=== PATIENT | male | born 1955 | race Caucasian/White ===

== ENCOUNTER → 2021-02-06 13:07 | Outpatient (BNVA) | payer MEDICARE, MEDICAID, SELFPAY | PROVIDERS: PCP Internal Medicine Geriatric Medicine; Visit Provider Nurse Practitioner Family | DX: Z13.89 Encounter for screening for other disorder (principal) | CPT/HCPCS: Q3014 ==

== ENCOUNTER 2021-04-20 06:56 | Day surgery (SDC) | payer MEDICARE, MEDICAID, SELFPAY ==
[2021-04-14 10:59] VITALS: BMI 29.0
--- NOTE | 2021-04-16 12:20 | P.CONAN_ITS ---
Documented by User: Edna Roca 04/16/21 12:21 HPI - Anesthesia Eval Consult details Narrative: 65yo M for Colonoscopy [facility] Past Medical History Medical History (Updated 04/16/21 @ 12:20 by Edna Roca) Diabetes HTN (hypertension) Family History Family History (Updated 02/06/21 @ 13:10 by SUKUMAR Slaughter) Brother Cancer Diabetes Sister Diabetes Surgical History Surgical History (Updated 02/06/21 @ 13:08 by SUKUMAR Slaughter) H/O eye surgery Social History Social History (Updated 02/06/21 @ 13:11 by SUKUMAR Slaughter) Household Members: Spouse Alcohol intake: current Alcohol intake frequency: a few times a month Smoking Status: Never smoker Are you DNR?: No Advance Directives: No Advance Directives Information Provided: No Advance Directives on File: No Meds Allergies Allergy/AdvReac Type Severity Reaction Status Date / Time No Known Allergies Allergy Verified 04/14/21 10:56 [No Known Allergies*] Home Medications Medication Instructions Recorded Confirmed Last Taken Type atorvastatin 40 mg tablet 40 mg PO BEDTIME 02/06/21 04/14/21 Unknown History insulin NPH-regular 70-30 U-100 35 unit SUBCUT DAILY 02/06/21 04/14/21 Unknown History insulin 100 unit/mL subcutaneous pen losartan 100 mg tablet 100 mg PO DAILY 02/06/21 04/14/21 Unknown History metformin 1,000 mg tablet 1,000 mg PO BID 02/06/21 04/14/21 Unknown History albuterol sulfate 2 puff PO Q4-6H PRN 04/14/21 04/14/21 Unknown History Exam Exam Date and Time: April 16, 2021 1220 Height,Weight and Vital Signs: Height 5 ft 7 in Weight 83.915 kg Assessment and Plan Assessment Anesthesia Assessment: Chart Reviewed Documented by User: Marni Henderson 04/20/21 08:38 [facility] Past Medical History Medical History (Updated 04/16/21 @ 12:20 by Edna Roca) Diabetes HTN (hypertension) Family History Family History (Updated 02/06/21 @ 13:10 by SUKUMAR Slaughter) Brother Cancer Diabetes Sister Diabetes Surgical History Surgical History (Updated 02/06/21 @ 13:08 by SUKUMAR Slaughter) H/O eye surgery Social History Social History (Updated 02/06/21 @ 13:11 by SUKUMAR Slaughter) Household Members: Spouse Alcohol intake: current Alcohol intake frequency: a few times a month Smoking Status: Never smoker Are you DNR?: No Advance Directives: No Advance Directives Information Provided: No Advance Directives on File: No Meds Allergies Allergy/AdvReac Type Severity Reaction Status Date / Time No Known Allergies Allergy Verified 04/14/21 10:56 [No Known Allergies*] Home Medications Medication Instructions Recorded Confirmed Last Taken Type atorvastatin 40 mg tablet 40 mg PO BEDTIME 02/06/21 04/14/21 Unknown History insulin NPH-regular 70-30 U-100 35 unit SUBCUT DAILY 02/06/21 04/14/21 Unknown History insulin 100 unit/mL subcutaneous pen losartan 100 mg tablet 100 mg PO DAILY 02/06/21 04/14/21 Unknown History metformin 1,000 mg tablet 1,000 mg PO BID 02/06/21 04/14/21 Unknown History albuterol sulfate 2 puff PO Q4-6H PRN 04/14/21 04/14/21 Unknown History Exam Airway Mallampati Class: III TM Dist: >3cm Neck ROM: Full Heart: RRR Lungs: CTA BL Assessment and Plan Assessment Anesthesia Assessment: Anesthesia Plan Discussed and Chart Reviewed Final Anesthetic Review NPO: Yes ASA Class: III Final Preanesthetic Review: No Changes in Pt Med Stat and Consent Obtained/Reviewed Patient Risk: Intermediate Procedure Risk: Intermediate Anesthetic Plan Anesthetic Plan: MAC: Disposition: Standard PACU
[2021-04-20 07:42] LABS: Glucose, Whole Blood 98 mg/dL (60-115)
[2021-04-20 07:43] VITALS: BP 143/69; PULSE 73; RESP 16; TEMP 35.8; O2SAT 99
[2021-04-20] MEDS: Lactated Ringers 1,000 ML 100 ML IVCONT (07:47)
--- NOTE | 2021-04-20 08:31 | MHC.SHP ---
Pre-Procedural Eval Section B Chief Complaint: Screening Relevant Family History (Specify if Yes): No Relevant Social History: None Present Medications: see Short Stay Collaborative assessment Medical History: Significant History (Diabetes HTN (hypertension)) History of Previous Operations: Relevant previous surgery/procedure and date(s) (eye surg) Allergies: Allergies Allergy/AdvReac Type Severity Reaction Status Date / Time No Known Allergies Allergy Verified 04/14/21 10:56 [No Known Allergies*] Review of Systems Sugical H&P ROS: Negative: Constitution, Cardiovascular, Respiratory, Neurological, Psychiatric, Hem-Onc, Allergic/Immunologic, Gastrointestinal, Genitourinary, Musculoskeletal, Integumentary, Endocrine and Eyes/Ears/Nose/Throat Exam Surgical H&P Exam: Normal: HEENT, Normal: Heart, Normal: Lungs, Normal: Extremities, Normal: Abdomen, Normal: Skin and Normal: Neurological Plan Diagnosis/Plan: Unchanged I have reviewed the history and physical and performed a pertinent physical examination on my patient. No changes have occurred unless specified.
--- NOTE | 2021-04-20 08:40 | P.OP_ITS ---
Operative Note Operative Note Date of Service: 04/20/21 Narrative: Operative Information Procedure Description: Colonoscopy COLONOSCOPY Instrument: Olympus variable stiffness pediatric scope 190L Colonoscopy Monitoring: Vital signs and clinical assessment, continuous EKG monitoring, Pulse oximetry, Carbon Dioxide monitoring and blood pressure monitoring were done throughout the procedure. Colon withdrawal time was 11 minutes. Procedure: The patient was placed in the left lateral decubitis position and pre-procedure medications were administered. After a digital rectal examination of the ano-rectum, the video colonoscope was inserted into the rectum and advanced through the colon to the cecum/TI. The colonoscope was slowly withdrawn in a retrograde panoramic fashion and the colon mucosa was carefully examined including a retroflexed view of the rectum. Findings and interventions are described below. Procedure Difficulty:easy Findings: Terminal Ileum-normal Cecum:normal Ascending Colon: normal Transverse Colon -normal Descending Colon:normal Sigmoid Colon: scattered small diverticulosis Rectum: Retroflexion with small internal hemorrhoids, grade I Anorectum - normal Colon preparation: [place] Bowel Preparation Scale Right colon; 2 Transverse colon: 2 Left colon; 1 (0 = Unprepared colon segment with mucosa not seen due to solid stool that cannot be cleared. 1 = Portion of mucosa of the colon segment seen, but other areas of the colon segment not well seen due to staining, residual stool and/or opaque liquid. 2 = Minor amount of residual staining, small fragments of stool and/or opaque liquid, but mucosa of colon segment seen well. 3 = Entire mucosa of colon segment seen well with no residual staining, small fragments of stool or opaque liquid) Impression and Post Procedure Diagnosis: internal hemorrhoids diverticular disease Plan: High fiber diet leaflet Avoid straining at stool, epsom salts and sitz bath, anusol supps or cream as needed Repeat Colonoscopy in 1 year or earlier if clinically indicated, next time adherence to prep instructions Above findings were reviewed with the patient and relevant handouts were provided if indicated.
--- NOTE | 2021-04-20 08:40 | PM.OP ---
Brief Operative Note Date of Service: 04/20/21 Pre-op diagnosis: colon screening Post-op diagnosis: same Procedure: see op note Surgeon: Kenroy Arnett MD Anesthesia: MAC Was an Log Skidder used for this Procedure?: No Estimated blood loss (mL): 0 Condition: stable Disposition: PACU
[2021-04-20 09:05] VITALS: BP 114/60; PULSE 64; RESP 16; TEMP 36.2; O2SAT 99
[2021-04-20 09:18] LABS: Glucose, Whole Blood 95 mg/dL (60-115)
[2021-04-20 09:20] VITALS: BP 104/83; PULSE 65; RESP 16; TEMP 36.2; O2SAT 99
== END 2021-04-20 10:05 | disposition home or self-care (01) ==
PROVIDERS: PCP Internal Medicine Geriatric Medicine; Visit Provider Internal Medicine Gastroenterology
PROC: 0DJD8ZZ Inspection of Lower Intestinal Tract, Via Natural or Artificial Opening Endoscopic (ICD-10-PCS; CPT 45378; principal; 2021-04-20 08:30)
DX: Z12.11 Encounter for screening for malignant neoplasm of colon (principal); K57.30 Diverticulosis of large intestine without perforation or abscess without bleeding; K64.0 First degree hemorrhoids; I10 Essential (primary) hypertension; E11.9 Type 2 diabetes mellitus without complications; Z79.4 Long term (current) use of insulin; Z79.899 Other long term (current) drug therapy
CPT/HCPCS: G0121; 82947

== ENCOUNTER 2021-06-26 10:43 | Emergency (ER) | payer MEDICARE, OTHER, SELFPAY ==
--- NOTE | 2021-06-26 | ECG_ITS ---
Test Reason : CHEST PAIN Blood Pressure : / mmHG Vent. Rate : 078 BPM Atrial Rate : 078 BPM P-R Int : 168 ms QRS Dur : 144 ms QT Int : 412 ms P-R-T Axes : 053 -65 103 degrees QTc Int : 469 ms Sinus rhythm with occasional Premature ventricular complexes Left axis deviation Left bundle branch block Premature ventricular complexes Abnormal ECG When compared with ECG of 23-JUN-2020 12:21, No significant change was found Referred By: Generic ED Physician Electronically Signed By:KARINE DHALIWAL
[2021-06-26 11:18] VITALS: BP 137/50; PULSE 66; RESP 20; TEMP 35.6; O2SAT 98; BMI 27.3
--- NOTE | 2021-06-26 12:51 | ED.CHESTPAIN ---
HPI - Chest Pain General Chief Complaint: Dyspnea Stated Complaint: chest pain Time Seen by Provider: 06/26/21 12:34 Source: patient Mode of arrival: ambulatory Limitations: no limitations History of Present Illness HPI narrative: Patient comes emergency room complaining of chest pain. Patient states for the last 2 days, he has been having intermittent chest pain, states they seems to be worse with exertion. Patient states whenever he rests the pain goes away. Last night he had chest pain/burning sensation was yesterday, lasting approximately 4 minutes while caring a heavy box of water. Resolve with rest. This morning, patient states that he had slight discomfort follow-up being, left the few seconds but it on the way. At this time, patient is asymptomatic. Patient reports that this morning he seems to be a bit short of breath. Related Data Home Medications Medication Instructions Recorded Confirmed atorvastatin 40 mg tablet 40 mg PO BEDTIME 02/06/21 04/14/21 insulin NPH-regular 70-30 U-100 35 unit SUBCUT DAILY 02/06/21 04/14/21 insulin 100 unit/mL subcutaneous pen (Novolin 70-30 FlexPen U-100 Insulin) losartan 100 mg tablet 100 mg PO DAILY 02/06/21 04/14/21 metformin 1,000 mg tablet 1,000 mg PO BID 02/06/21 04/14/21 albuterol sulfate 90 mcg/actuation 2 puff PO Q4-6H PRN 04/14/21 04/14/21 aerosol inhaler Previous Rx's Medication Instructions Recorded bisacodyl 5 mg tablet,delayed 10 mg PO ONCE 1 Days #2 tab 02/06/21 release (Dulcolax (bisacodyl)) polyethylene glycol 3350 17 238 g PO ONCE #238 g 02/06/21 gram/dose oral powder (Miralax) aspirin 81 mg tablet,delayed 81 mg PO DAILY #30 tab 06/26/21 release metoprolol succinate 25 mg 12.5 mg PO DAILY #30 tab 06/26/21 tablet,extended release 24 hr nitroglycerin 0.4 mg sublingual 0.4 mg SUBLINGUAL Q5M PRN #10 tab 06/26/21 tablet Allergies Allergy/AdvReac Type Severity Reaction Status Date / Time No Known Allergies Allergy Verified 04/14/21 10:56 [No Known Allergies*] Review of Systems Review of Systems: Constitutional : No Weight loss, No Fever, No Chills, No Night Sweats, No Fatigue, No Malaise ENT/Mouth : No Hearing loss, No Ear Pain, No Nasal Congestion, No Sinus Pain, No Hoarseness, No sore throat, No Rhinorrhea, No Swallowing Difficulty Eyes: No Eye Pain, No Swelling, No Redness, No Foreign Body, No Discharge, No Vision Changes Cardiovascular : Complaining of chest pain/chest burning with exertion, No SOB, mild Dyspnea on Exertion, No Orthopnea, No Edema, No Palpitations Respiratory : No Cough, No Sputum, No Wheezing, No Smoke Exposure Gastrointestinal : No Nausea, No Vomiting, No Diarrhea, No Constipation, No abdominal Pain, No Hematochezia, No Melena Genitourinary : no irregular bleeding, No Dysuria, No Urinary Frequency, No Hematuria, No Urinary Incontinence, No Urgency, No Flank Pain, No Urinary Flow Changes, No Hesitancy Musculoskeletal : No joint pain, No Myalgias, No Joint Swelling Skin : No Skin Lesions, No rash Neuro : No Weakness, No Numbness, No Paresthesias, No Loss of Consciousness, No Dizziness, No Headache Psych : No Anxiety/Panic, No Depression, No SI/HI/AH/VH, No Social Issues, Heme/Lymph: No Bruising, No Bleeding,No Lymphadenopathy Endocrine : No Polyuria, No Polydipsia, No Temperature Intolerance [facility] Past Medical History Medical History Diabetes HTN (hypertension) Surgical History H/O eye surgery Family History Family History (Updated 02/06/21 @ 13:10 by SUKUMAR Slaughter) Brother Cancer Diabetes Sister Diabetes Social History Social History (Updated 02/06/21 @ 13:11 by SUKUMAR Slaughter) Household Members: Spouse Alcohol intake: current Alcohol intake frequency: a few times a month Advance Directives: No Advance Directives Information Provided: No Physical Exam Vital Signs: Vital Signs: Last Vital Signs Temp 97.7 F 06/26/21 15:23 Pulse 70 06/26/21 15:41 Resp 18 06/26/21 15:41 BP 135/77 06/26/21 15:41 Pulse Ox 97 06/26/21 15:23 Body Mass Index 27.3 Const: Other: Appearance: Alert. Oriented X3. No acute distress. Eyes: Pupils equal, round and reactive to light. ENT: Pharynx normal. Neck: Normal inspection. Neck supple. No lymph nodes noted. No crepitus CVS: Normal heart rate and rhythm. Pulses normal. Normal S1 and S2 Respiratory: No respiratory distress. Breath sounds normal. No Wheezing. No rales Abdomen: Soft and nontender. No rigidity. No distention. good BS x4 Skin: Skin warm and dry. Normal skin color. Normal skin turgor. Extremities: No lower extremity edema. No Lacerations. No Rash Neuro: Oriented X 3. No motor deficit. No sensory deficit. Moving all extermities. No slurred speech. Course Course Course Narrative: Patient has been asymptomatic in the emergency room. Patient will be discharged with a prescription of nitroglycerin p.r.n., aspirin, patient is already on a statin, and a small dose of metoprolol. Patient will likely need a cardiac stress test as an outpatient. MDM - Chest Pain Lab Data Result diagrams: 06/26/21 13:32 06/26/21 14:21 Labs: Lab Results 06/26/21 06/26/21 06/26/21 Range/Units 13:32 13:32 14:21 WBC 8.3 (4.8-10.8) X10*3/uL RBC 4.75 (4.60-5.80) X10*6/uL Hgb 13.4 L (14.0-18.0) g/dl Hct 41.3 L (42-52) % MCV 86.9 (80-98) fL MCH 28.2 (27.0-33.0) pg MCHC 32.4 (31.0-36.0) g/dl RDW 13.0 (11.0-16.0) % Plt Count 188 (160-400) X10*3/uL MPV 10.9 (9.4-12.4) fL Immature Gran % (Auto) 0.4 (0.0-0.4) % Neut % (Auto) 58.7 (45-73) % Lymph % (Auto) 28.5 (20-40) % [place] % (Auto) 10.7 (2-11) % Eos % (Auto) 1.3 (0-4) % Baso % (Auto) 0.4 (0-2) % Lymph # (Auto) 2.4 (1.2-4.9) X10*3/uL [place] # (Auto) 0.9 (0.1-1.2) X10*3/uL Eos # (Auto) 0.1 (0.0-0.4) X10*3/uL Baso # (Auto) 0.0 (0.0-0.2) X10*3/uL Abs Immat Gran (auto) 0.03 (0.00-0.03) X10*3/uL Absolute Neuts (auto) 4.9 (2.0-8.3) X10*3/uL Absolute Nucleated RBC 0.000 (0.0-0.012) X10*3/uL Nucleated RBC % (auto) 0.0 (0.0-0.2) /100WBC D-Dimer NG/ML Sodium 139 (135-145) mmol/L Potassium 4.5 (3.3-5.1) mmol/L Chloride 105 (96-108) mmol/L Carbon Dioxide 24 (22-29) mmol/L Anion Gap 15 (12-20) BUN 13 (9-16) mg/dL Creatinine 0.96 (0.5-1.4) mg/dL Estim Creat Clear Calc 73.2 Estimated GFR > 60 Random Glucose 95 (60-115) mg/dL Calcium 9.8 (8.4-10.2) mg/dL Total Bilirubin 0.6 (0.0-1.0) mg/dL Direct Bilirubin 0.2 (0.0-0.5) mg/dL AST 17 (5-37) U/L ALT 20 (0-40) U/L Alkaline Phosphatase 70 (39-117) U/L Troponin I High Sens 8.7 (<3.5-35.0) ng/L Total Protein 7.1 (6.5-8.0) g/dL Albumin 4.1 (3.5-5.0) g/dL 06/26/21 Range/Units 14:21 WBC (4.8-10.8) X10*3/uL RBC (4.60-5.80) X10*6/uL Hgb (14.0-18.0) g/dl Hct (42-52) % MCV (80-98) fL MCH (27.0-33.0) pg MCHC (31.0-36.0) g/dl RDW (11.0-16.0) % Plt Count (160-400) X10*3/uL MPV (9.4-12.4) fL Immature Gran % (Auto) (0.0-0.4) % Neut % (Auto) (45-73) % Lymph % (Auto) (20-40) % [place] % (Auto) (2-11) % Eos % (Auto) (0-4) % Baso % (Auto) (0-2) % Lymph # (Auto) (1.2-4.9) X10*3/uL [place] # (Auto) (0.1-1.2) X10*3/uL Eos # (Auto) (0.0-0.4) X10*3/uL Baso # (Auto) (0.0-0.2) X10*3/uL Abs Immat Gran (auto) (0.00-0.03) X10*3/uL Absolute Neuts (auto) (2.0-8.3) X10*3/uL Absolute Nucleated RBC (0.0-0.012) X10*3/uL Nucleated RBC % (auto) (0.0-0.2) /100WBC D-Dimer 200 NG/ML Sodium (135-145) mmol/L Potassium (3.3-5.1) mmol/L Chloride (96-108) mmol/L Carbon Dioxide (22-29) mmol/L Anion Gap (12-20) BUN (9-16) mg/dL Creatinine (0.5-1.4) mg/dL Estim Creat Clear Calc Estimated GFR Random Glucose (60-115) mg/dL Calcium (8.4-10.2) mg/dL Total Bilirubin (0.0-1.0) mg/dL Direct Bilirubin (0.0-0.5) mg/dL AST (5-37) U/L ALT (0-40) U/L Alkaline Phosphatase (39-117) U/L Troponin I High Sens (<3.5-35.0) ng/L Total Protein (6.5-8.0) g/dL Albumin (3.5-5.0) g/dL ECG Data ECG #1: Attestation: I personally reviewed and interpreted this ECG as follows: (Sinus rhythm, heart rate 78, old left bundle branch block, occasional PVC, ST segment depressions V5 V6 which are old as well) Discharge Plan Discharge Clinical Impression: Chest pain Qualifiers: Chest pain type: unspecified Qualified Code(s): R07.9 - Chest pain, unspecified Patient Disposition: Home, Self-Care Instructions: Chest Pain (ED) Additional Instructions: Please follow-up with your primary care physician tomorrow. If you have any worsening or new symptoms, please return to the emergency room or call 911 Prescriptions: New nitroglycerin 0.4 mg tablet, sublingual 0.4 mg sublingual Q5M PRN (Reason: chest pain) Qty: 10 RF: 0 aspirin 81 mg tablet,delayed release (DR/EC) 81 mg PO DAILY Qty: 30 RF: 0 metoprolol succinate 25 mg tablet extended release 24 hr 12.5 mg PO DAILY Qty: 30 RF: 0 No Action albuterol sulfate 90 mcg/actuation HFA aerosol inhaler 2 puff PO Q4-6H PRN (Reason: Shortness Of Breath) RF: 0 metformin 1,000 mg tablet 1,000 mg PO BID RF: 0 Novolin 70-30 FlexPen U-100 100 unit/mL (70-30) insulin pen 35 unit subcut DAILY RF: 0 losartan 100 mg tablet 100 mg PO DAILY RF: 0 atorvastatin 40 mg tablet 40 mg PO BEDTIME RF: 0 bisacodyl [Dulcolax (bisacodyl)] 5 mg tablet,delayed release (DR/EC) 10 mg PO ONCE 1 Days Qty: 2 RF: 0 polyethylene glycol 3350 [Miralax] 17 gram/dose powder 238 g PO ONCE Qty: 238 RF: 0
[2021-06-26 13:37] LABS: MANUAL DIFF FLAG NO
[2021-06-26 13:40] LABS: Basophils Percent Auto 0.4 % (0-2); Eosinophils Absolute Auto 0.1 X10*3/uL (0.0-0.4); Eosinophils Percent Auto 1.3 % (0-4); Hematocrit 41.3 % (42-52); Hemoglobin 13.4 g/dl (14.0-18.0); Imm Gran Abs Auto 0.03 X10*3/uL (0.00-0.03); Imm Gran Pct Auto 0.4 % (0.0-0.4); Lymphocytes Absolute Auto 2.4 X10*3/uL (1.2-4.9); Lymphocytes Percent Auto 28.5 % (20-40); Mean Corpuscular HGB Conc 32.4 g/dl (31.0-36.0); Mean Corpuscular Hemoglobin 28.2 pg (27.0-33.0); Mean Corpuscular Volume 86.9 fL (80-98); Mean Platelet Volume 10.9 fL (9.4-12.4); Monocytes Absolute Auto 0.9 X10*3/uL (0.1-1.2); Monocytes Percent Auto 10.7 % (2-11); Neutrophils Absolute Auto 4.9 X10*3/uL (2.0-8.3); Neutrophils Percent Auto 58.7 % (45-73); Platelet Count 188 X10*3/uL (160-400); Red Blood Count 4.75 X10*6/uL (4.60-5.80); White Blood Count 8.3 X10*3/uL (4.8-10.8)
[2021-06-26 14:03] LABS: Troponin-I High Sensitivity 8.7 ng/L (<3.5-35.0)
[2021-06-26 14:40] LABS: D Dimer 200 NG/ML
[2021-06-26 14:50] LABS: Alanine Aminotransferase 20 U/L (0-40); Albumin Level 4.1 g/dL (3.5-5.0); Alkaline Phosphatase 70 U/L (39-117); Anion Gap 15 (12-20); Aspartate Amino Transferase 17 U/L (5-37); Bilirubin Direct 0.2 mg/dL (0.0-0.5); Bilirubin Total 0.6 mg/dL (0.0-1.0); Blood Urea Nitrogen 13 mg/dL (9-16); Calcium 9.8 mg/dL (8.4-10.2); Carbon Dioxide 24 mmol/L (22-29); Chloride 105 mmol/L (96-108); Creatinine Clr Calc Pharmacy 73.2; Estimated Glomerular Filt Rate > 60; Glucose Random 95 mg/dL (60-115); Potassium 4.5 mmol/L (3.3-5.1); Sodium 139 mmol/L (135-145); Total Protein 7.1 g/dL (6.5-8.0)
[2021-06-26 15:23] VITALS: BP 142/68; PULSE 70; RESP 20; TEMP 36.5; O2SAT 97
[2021-06-26 15:41] VITALS: BP 135/77; PULSE 70; RESP 18
== END 2021-06-26 16:17 | disposition home or self-care (01) ==
PROVIDERS: Emergency Provider Emergency Medicine; PCP Internal Medicine Geriatric Medicine
DX: R07.9 Chest pain, unspecified (principal); E11.9 Type 2 diabetes mellitus without complications; I10 Essential (primary) hypertension; Z79.899 Other long term (current) drug therapy
CPT/HCPCS: 36415; 80048; 80076; 84484; 85025; 85379; 93005; 99284

== ENCOUNTER 2022-05-27 12:09 | Outpatient (REF) | payer MEDICARE, OTHER, SELFPAY ==
[2022-05-27 13:53] LABS: Hematocrit 43.5 % (42.0-52.0); Hemoglobin 13.9 g/dl (14.0-18.0); Mean Corpuscular Hemoglobin 27.5 pg (27.0-33.0); Mean Corpuscular Volume 86.1 fL (80.0-98.0); Mean Platelet Volume 11.4 fL (9.4-12.4); Platelet Count 177 X10*3/uL (160-400); Red Blood Count 5.05 X10*6/uL (4.60-5.80); Red Cell Distribution Width 13.2 % (11.0-16.0); White Blood Count 7.4 X10*3/uL (4.8-10.8)
[2022-05-27 13:59] LABS: INTERNATIONAL NORM RATIO 1.2 (0.9-1.1); Prothrombin Time 13.3 SEC (10.0-13.1)
[2022-05-27 14:43] LABS: Anion Gap 14 (12-20); Blood Urea Nitrogen 14 mg/dL (9-16); Calcium 9.8 mg/dL (8.4-10.2); Carbon Dioxide 27 mmol/L (22-29); Chloride 100 mmol/L (96-108); Creatinine Clr Calc Pharmacy 71.7; Estimated Glomerular Filt Rate > 60; Glucose Random 216 mg/dL (60-115); Potassium 5.2 mmol/L (3.3-5.1); Sodium 136 mmol/L (135-145)
== END 2022-05-27 12:10 | disposition home or self-care (01) ==
LOC: HO.LAB 12:09
PROVIDERS: PCP Internal Medicine Geriatric Medicine; Referring Provider Internal Medicine Geriatric Medicine; Visit Provider Internal Medicine Cardiovascular Disease
DX: I20.8 Other forms of angina pectoris (principal); I25.5 Ischemic cardiomyopathy; I10 Essential (primary) hypertension; I44.7 Left bundle-branch block, unspecified; Z79.899 Other long term (current) drug therapy
CPT/HCPCS: 36415; 80048; 85027; 85610; 93005; 99202

== ENCOUNTER → 2022-09-30 08:22 | Outpatient (BNVA) | payer MEDICARE, SELFPAY | PROVIDERS: PCP Internal Medicine Geriatric Medicine; Visit Provider Internal Medicine Cardiovascular Disease | DX: I42.9 Cardiomyopathy, unspecified (principal); I25.5 Ischemic cardiomyopathy; I25.10 Atherosclerotic heart disease of native coronary artery without angina pectoris | CPT/HCPCS: 99212 ==

== ENCOUNTER → 2023-03-22 10:08 | Outpatient (BNVA) | payer MEDICARE, SELFPAY | PROVIDERS: PCP Internal Medicine Geriatric Medicine; Referring Provider Internal Medicine Geriatric Medicine; Visit Provider Internal Medicine Cardiovascular Disease | DX: I25.10 Atherosclerotic heart disease of native coronary artery without angina pectoris (principal); I44.7 Left bundle-branch block, unspecified; I25.5 Ischemic cardiomyopathy | CPT/HCPCS: 93005; 99212 ==

== ENCOUNTER 2023-04-08 06:05 | Outpatient (REF) | payer MEDICARE, SELFPAY ==
[2023-04-08 08:01] LABS: Cholesterol 91 mg/dL; HDL Cholesterol 29 mg/dL; LDL Cholesterol Calculated 27 mg/dl; Triglycerides 175 mg/dL
[2023-04-11 16:03] LABS: CRP High Sensitivity 2.2 mg/L
== END 2023-04-08 06:06 | disposition home or self-care (01) ==
LOC: HO.LAB 06:05
PROVIDERS: PCP Internal Medicine Geriatric Medicine; Visit Provider Internal Medicine Cardiovascular Disease
DX: E78.5 Hyperlipidemia, unspecified (principal); I25.10 Atherosclerotic heart disease of native coronary artery without angina pectoris
CPT/HCPCS: 36415; 80061; 86141

== ENCOUNTER → 2023-04-21 10:31 | Outpatient (REF) | payer MEDICARE, OTHER, SELFPAY ==
--- NOTE | 2023-04-21 10:49 | CA_ITS ---
Transthoracic Echocardiogram Patient (Last, First, Middle): Danny Martinez, Gender: Male Date of : 1955 Age: 67 Procedure Date: 04/21/2023 Procedure Type: Transthoracic Echocardiogram Location: OP Height: 172.72 cm Weight: 80.74 kg BSA: 1.95 m2 Heart Rate: 57 bpm BP: 130 / 64 mmHg Grain Unloader: TO Referring MD: Abhishek Kelley MD Symptoms: I25.5 - Ischemic cardiomyopathy Study Quality: Adequate ECG Rhythm: Bradycardia Conclusions: - The left ventricular systolic function is severely decreased. The visually estimated ejection fraction is between 25-30%. - The inferoseptal wall, the basal anteroseptal, and mid anteroseptal segments are akinetic. - No obvious valvular pathology seen on this study. Findings Procedure Information Contrast agent, definity, is being given per protocol without apparent complications. Left Ventricle Mildly increased left ventricular cavity size. There is normal left ventricular wall thickness. The left ventricular systolic function is severely decreased. The visually estimated ejection fraction is between 25 30%. There is evidence of regional wall motion abnormalities. E/E prime ratio is between 8 and 15 consistent with indeterminate filling pressures. Evidence suggests grade II (moderate) diastolic dysfunction. Wall Motion Rest Echo Findings The inferoseptal wall, the basal anteroseptal, and mid anteroseptal segments are akinetic. Right Ventricle Normal right ventricular cavity size and systolic function. Atria Both atria are normal in size. Aortic Valve There is a normal trileaflet aortic valve. There is mild calcification of the aortic valve. There is no aortic valve stenosis. There is no aortic valve regurgitation. Mitral Valve The mitral valve appears normal. There is trace mitral valve regurgitation. There is no mitral valve stenosis. Pulmonic Valve The pulmonic valve is likely normal. Tricuspid Valve There is trace tricuspid valve regurgitation. There is no evidence of pulmonary hypertension. Great Vessels The asc aorta is normal in size. Venous The inferior vena cava is normal in size and collapses greater than 50% with inspiration. Pericardium/Pleural There is no evidence of pericardial effusion. Prior Study Comparison No prior study available for comparison. Recommendations, Care & Conclusions No obvious valvular pathology seen on this study. Measurements 2D Linear Measurements IVSd: 0.82 0.6-0.9/0.6-1.0 cm LVIDd: 5.55 3.9-5.3/4.2-5.9 cm LVIDd Index: 2.85 2.4-3.2/2.2-3.1 cm/m2 LVIDs: 4.37 2.0-3.6 cm LVPWd: 0.90 0.7-1.1 cm LA Diam: 4.10 2.7-3.8/3.0-4.0 cm LAIDs Index: 2.10 1.5-2.3 cm/m2 LV Mass: 221.65 67-162/88-224 g LV Mass Index: 113.67 43-95/49-115 g/m2 LVOT Diam: 2.30 3.0+(-)1.3 cm 2D Systolic Function EF 4C: 31.50 >55% EF 2C: 39.40 >55% EF BiP: 35.70 >55% Mitral Valve MV Pk E: 0.80 MV PK A: 0.66 MV Decel Time: 211.00 E/A: 1.20 E'Lateral: 7.51 E'Medial: 3.48 E/E' Med: 22.90 E/E' Lat: 10.60 PHT: 62.00 MVA PHT: 3.55 Decel [place]: 3.77 Aortic Valve AoV Pk Jaime: 0.91 AoV Mn Jaime: 0.62 AoV VTI: 0.20 AoV Pk Grad: 3.00 Aov Mn Grad: 2.00 MEILSSA Cont.VTI: 2.99 LVOT LVOT Pk Jaime: 0.65 LVOT Mn Jaime: 0.43 LVOT VTI: 0.15 LVOT Pk Grad: 2.00 LVOT Mn Grad: 1.00 LVOT Diam: 2.30 LVOT Area: 4.15 Diastolic Function MV Pk E: 0.80 MV Pk A: 0.66 E/A: 1.20 E'Medial: 3.48 E/E' Med: 22.90 E' Laterial: 7.51 E/E' Lat: 10.60 Right Ventricle TAPSE (mm): 23.80 TVS' Jaime: 9.79 Tricuspid Valve TR Pk Jaime: 1.52 TR Pk Grad: 9.00 RA Press: 3.00 RVSP: 12.00 Great Vessels Aorta Sinus of Valsalva: 3.81 2.0-3.5 cm Ao Asc: 3.20 2.1-3.4 cm Updated in Other Vendor System with Status of Final Alex Ocampo MD electronically signed on 04/23/2023 12:38:56 PM with status of Final
== END ==
LOC: HO.CARD 10:31
PROVIDERS: PCP Internal Medicine Geriatric Medicine; Visit Provider Internal Medicine Cardiovascular Disease
DX: I25.5 Ischemic cardiomyopathy (principal)
CPT/HCPCS: 93306; Q9957

== ENCOUNTER 2023-10-04 15:13 | Outpatient (AMB) | payer MEDICARE, SELFPAY ==
--- NOTE | 2023-10-04 15:18 | A.OFFVIS_ITS ---
Intake Vital Signs 10/04/23 15:19 Height 5 ft 8 in Weight 172 lb 6.424 oz BMI 26.2 BP 110/54 L Blood Pressure Location Lt brachial Position Sitting Pulse 66 Intake Visit Reasons: 6 month follow-up Intake Note: 6 month follow up Coordinator Of Rehabilitation Services Required: Yes Coordinator Of Rehabilitation Services Language: Ware Cleaner Name: Fredi Lane Accompanied by: Self / Same As Patient Allergies No Known Allergies [No Known Allergies*] Allergy (Verified 10/04/23 15:21) Medication List - Last Reconciled 10/04/23 by Abhishek Kelley MD albuterol sulfate 90 mcg/actuation 2 puffs PO Q4-6H PRN aspirin 81 mg PO DAILY bisacodyl (Dulcolax (bisacodyl)) 10 mg (2 x 5 mg) PO ONCE 1 day insulin NPH and regular human 100 unit/mL (70-30) (Novolin 70-30 FlexPen U-100 Insulin) 35 units subcut DAILY insulin NPH and regular human 100 unit/mL (70-30) (Humulin 70/30 U-100 Insulin) mL subcut isosorbide mononitrate ER 60 mg PO DAILY metformin 1,000 mg PO BID metoprolol succinate ER 50 mg PO DAILY 90 days nitroglycerin 0.4 mg sublingual Q5M PRN polyethylene glycol 3350 (Miralax) 238 grams PO ONCE rosuvastatin 40 mg PO DAILY 90 days sacubitril-valsartan 24-26 mg (Entresto) 1 tab PO BID HPI HPI Comments History of Present Illness Details Danny comes for follow-up. History was obtained with help of full time staff interpreter. Patient says he has been doing well. Walks 30-45 minutes without break and has no symptoms of chest discomfort. No shortness of breath. Denies any heart failure symptoms. Takes all his medications. Most recent LDL was well optimized. Denies any palpitations, lightheadedness, syncope. [facility] Medical History CAD (coronary artery disease) Diabetes HTN (hypertension) Surgical History H/O eye surgery Family History Brother Cancer Diabetes Sister Diabetes Social History Household Members: Spouse Alcohol intake: current Alcohol intake frequency: a few times a month Review of Systems Const Denies weakness ENT Denies dizziness Card Denies chest pain, Denies chest pain with activity, Denies syncope, Denies rapid heart rate, Denies pedal edema, Denies edema, Denies leg edema, Denies lightheadedness, Denies palpitations, Denies dyspnea, Denies dyspnea on exertion and Denies orthopnea Resp Denies cough, Denies dyspnea and Denies dyspnea on exertion GI Denies hematochezia and Denies change in stool character Musc Denies abnormal gait, Denies muscle cramps, Denies muscle weakness, Denies numbness, Denies radiating pain into limb and Denies tingling Neuro Denies Abnormal speech present, Denies abnormal gait, Denies dizziness, Denies syncope, Denies numbness, Denies tingling and Denies weakness Endo Denies palpitations Physical Exam Vital Signs: Last Vital Signs Pulse 66 10/04/23 15:19 BP 110/54 L 10/04/23 15:19 BMI result Body Mass Index 26.2 Const General: cooperative, comfortable, no acute distress, alert, awake, Physically active and well groomed Nutritional Appearance: overweight Orientation/consciousness: patient oriented x3 Limitations: no limitations Neck Neck: Yes trachea midline, Yes supple and Yes no JVD Chest Chest palpation & inspection: normal inspection of the chest Resp Effort & Inspection: normal respiratory effort Auscultation: clear to auscultation bilaterally Cardio Jugular venous distension: no JVD Palpation: normal PMI Rate: regular rate Rhythm: regular rhythm Heart sounds: S1 normal heart sound present, S2 normal heart sound present, no click, no gallops, no murmurs and no rubs GI Inspection: Yes obesity Auscultation: normal bowel sounds Skin General skin exam: no rashes or lesions noted Neuro General: patient oriented x3 and no focal motor deficits Speech: No Abnormal speech present Extrem General: Yes no clubbing, cyanosis or edema Psych Appearance: grossly normal Assessment & Plan Assessment & Plan (1) Ischemic cardiomyopathy: Code(s): I25.5 - Ischemic cardiomyopathy Plan: Last echocardiogram showed persistent severe ischemic cardiomyopathy, but surprising clinically has no symptoms with good functional capacity. Clinically euvolemic and well compensated. NYHA class 1 symptoms. Currently on neurohormonal modulation with metoprolol and Entresto. Advised to follow-up echocardiogram near future. If he has persistent severe LV systolic dysfunction should further evaluate for myocardial viability and ischemia and consider surgical revascularization. This was discussed with him with help of full time staff interpreter. Signs and symptoms of heart failure were discussed. Continue anti ischemic therapy with metoprolol and isosorbide as well. Follow-up in 4 weeks time. If not a candidate for revascularization then will most likely need EPS consultation for Bi V ICD with resynchronization if he still has left bundle- branch block (2) CAD (coronary artery disease): Comment: Severe 2 vessel disease with 99% ostial circumflex as well as IFR positive LAD disease Code(s): I25.10 - Atherosclerotic heart disease of [place] coronary artery without angina pectoris Plan: Complex severe 2 vessel disease with no symptoms of angina on dual antianginal therapy. Currently doing well. Continue low-dose aspirin therapy for life. Currently on dual antianginal therapy with well optimized symptoms in good functional capacity. His LDL is extremely well optimized. Management of ischemia as above. Advised to call me with any anginal symptoms. Will follow up in the clinic in 4 weeks time, sooner p.r.n.. Thank you for allowing me to partake in his care Coding Level of Care Code Est Pt Level 4 (43484) Diagnoses Ischemic cardiomyopathy I25.5 CAD (coronary artery disease) I25.10
[2023-10-04 15:19] VITALS: BP 110/54; PULSE 66; BMI 26.2
== END 2023-10-04 15:34 | disposition home or self-care (01) ==
PROVIDERS: Visit Provider Internal Medicine Cardiovascular Disease
DX: I25.5 Ischemic cardiomyopathy (principal); I25.10 Atherosclerotic heart disease of native coronary artery without angina pectoris
CPT/HCPCS: 99214

== ENCOUNTER → 2023-10-04 15:13 | Outpatient (BNVA) | payer MEDICARE, SELFPAY | PROVIDERS: Visit Provider Internal Medicine Cardiovascular Disease | DX: I42.9 Cardiomyopathy, unspecified (principal); I25.5 Ischemic cardiomyopathy; I25.10 Atherosclerotic heart disease of native coronary artery without angina pectoris; I10 Essential (primary) hypertension; E11.9 Type 2 diabetes mellitus without complications | CPT/HCPCS: 99212 ==

== ENCOUNTER → 2023-11-08 14:40 | Outpatient (REF) | payer MEDICARE, OTHER, SELFPAY ==
--- NOTE | 2023-11-08 14:55 | CA_ITS ---
Transthoracic Echocardiogram Patient (Last, First, Middle): Danny Martinez, Gender: Male Date of : 1955 Age: 68 Procedure Date: 11/08/2023 Procedure Type: Transthoracic Echocardiogram Location: OP Height: 172.72 cm Weight: 77.57 kg BSA: 1.91 m2 Heart Rate: bpm BP: 120 / 70 mmHg Hip Hop Artist: MARK/DOMO Referring MD: Abhishek Kelley MD Symptoms: I42.9 - Cardiomyopathy, unspecified Study Quality: Adequate with contrast Conclusions: - The left ventricular systolic function is severely decreased. The visually estimated ejection fraction is between 25-30%. - The inferoseptal wall, the basal anteroseptal, and mid anteroseptal segments are akinetic. Findings Procedure Information Contrast agent, definity, is being given per protocol without apparent complications. Left Ventricle Mildly increased left ventricular cavity size. The left ventricular systolic function is severely decreased. The visually estimated ejection fraction is between 25-30%. There is evidence of regional wall motion abnormalities. Wall Motion Rest Echo Findings The inferoseptal wall, the basal anteroseptal, and mid anteroseptal segments are akinetic. Venous The inferior vena cava is normal in size and collapses greater than 50% with inspiration. Prior Study Comparison No significant change compared to prior study dated: 04/21/2023. Measurements 2D Linear Measurements IVSd: 0.79 0.6-0.9/0.6-1.0 cm LVIDd: 5.62 3.9-5.3/4.2-5.9 cm LVIDd Index: 2.94 2.4-3.2/2.2-3.1 cm/m2 LVIDs: 4.89 2.0-3.6 cm LVPWd: 0.71 0.7-1.1 cm LV Mass: 190.30 67-162/88-224 g LV Mass Index: 99.64 43-95/49-115 g/m2 LVOT Diam: 2.30 3.0+(-)1.3 cm 2D Systolic Function EF 4C: 33.20 >55% EF 2C: 41.60 >55% EF BiP: 37.70 >55% LVOT LVOT Pk Jaime: 0.67 LVOT Mn Jaime: 0.44 LVOT VTI: 0.13 LVOT Pk Grad: 2.00 LVOT Mn Grad: 1.00 LVOT Diam: 2.30 LVOT Area: 4.15 Tricuspid Valve RA Press: 3.00 Updated in Other Vendor System with Status of Final Alex Ocampo MD electronically signed on 11/09/2023 12:25:01 PM with status of Final
== END ==
LOC: HO.CARD 14:40
PROVIDERS: PCP Internal Medicine Geriatric Medicine; Visit Provider Internal Medicine Cardiovascular Disease
DX: I42.9 Cardiomyopathy, unspecified (principal); I25.5 Ischemic cardiomyopathy
CPT/HCPCS: 93308; Q9957

== ENCOUNTER → 2023-11-08 14:55 | Outpatient (BNV) | payer MEDICARE, SELFPAY | PROVIDERS: PCP Internal Medicine Geriatric Medicine; Visit Provider Internal Medicine | DX: I42.9 Cardiomyopathy, unspecified (principal) | CPT/HCPCS: 93308 ==

== ENCOUNTER 2023-11-11 09:21 | Outpatient (AMB) | payer MEDICARE, SELFPAY ==
[2023-11-11 09:25] VITALS: BP 114/62; PULSE 59; BMI 26.1
--- NOTE | 2023-11-11 09:25 | A.OFFVIS_ITS ---
Intake Vital Signs 11/11/23 09:25 Height 5 ft 8 in Weight 171 lb 15.369 oz BMI 26.1 BP 114/62 Blood Pressure Location Lt brachial Position Sitting Pulse 59 Pulse Source Pulse Oximeter Intake Visit Reasons: 4 wk f/up echo ns Textile Technical Officer Required: Yes Textile Technical Officer Language: Sow Farm Technician Name: manuel pineda [id number] Allergies No Known Allergies [No Known Allergies*] Allergy (Verified 11/11/23 09:27) Medication List - Last Reconciled 11/11/23 by MEDINA BarraganC albuterol sulfate 90 mcg/actuation 2 puffs PO Q4-6H PRN aspirin 81 mg PO DAILY insulin NPH and regular human 100 unit/mL (70-30) (Humulin 70/30 U-100 Insulin) mL subcut isosorbide mononitrate ER 60 mg PO DAILY metformin 1,000 mg PO BID metoprolol succinate ER 50 mg PO DAILY 90 days nitroglycerin 0.4 mg sublingual Q5M PRN rosuvastatin 40 mg PO DAILY 90 days sacubitril-valsartan 24-26 mg (Entresto) 1 tab PO BID HPI 4 wk f/up echo ns HPI Details Danny is a 68-year-old male with past medical history of hyperlipidemia, hypertension, diabetes, coronary artery disease, left bundle branch block, ischemic cardiomyopathy who presents for follow-up after recent echocardiogram. Today he reports that he has been feeling well with no concerning symptoms. He denies chest discomfort at rest or with activity. He denies having shortness of breath, palpitations, presyncope, syncope, PND, orthopnea or edema. He says he walks frequently and tolerates normal ADLs without symptoms. He says he can climb a splayed of stairs without symptoms. He is taking all meds as directed. Certified electoral officer used. [facility] Medical History CAD (coronary artery disease) HTN (hypertension) Diabetes Surgical History H/O eye surgery Family History Brother Cancer Diabetes Sister Diabetes Social History Household Members: Spouse Alcohol intake: current Alcohol intake frequency: a few times a month Review of Systems Const All systems reviewed & are unremarkable except as noted in HPI and below ENT Denies dizziness Card Denies chest pain, Denies chest pain at rest, Denies chest pain with activity, Denies rapid heart rate, Denies pedal edema, Denies edema, Denies leg edema, Denies lightheadedness, Denies palpitations, Denies dyspnea, Denies dyspnea on exertion and Denies orthopnea Resp Denies cough, Denies dyspnea and Denies dyspnea on exertion GI Denies hematochezia and Denies change in stool character Musc Denies abnormal gait, Denies limited range of motion, Denies muscle cramps, Denies muscle weakness, Denies numbness, Denies radiating pain into limb, Denies stiffness and Denies tingling Neuro Denies abnormal gait, Denies dizziness, Denies numbness and Denies tingling Endo Denies palpitations Physical Exam Vital Signs: Last Vital Signs Pulse 59 11/11/23 09:25 BP 114/62 11/11/23 09:25 BMI result Body Mass Index 26.1 Const General: cooperative, healthy appearing, comfortable and no acute distress Orientation/consciousness: patient oriented x3 Neck Neck: Yes normal visual inspection Resp Effort & Inspection: normal respiratory effort Auscultation: clear to auscultation bilaterally, no crackles, no rales, no rhonchi and no wheezes Cardio Jugular venous distension: no JVD Rate: regular rate Rhythm: regular rhythm Heart sounds: S1 normal heart sound present, S2 normal heart sound present, no murmurs and no rubs Neuro General: patient oriented x3 Extrem General: Yes normal to inspection Psych Appearance: grossly normal Mental Status: mental status grossly normal Speech and movement: Normal speech and movement present Assessment & Plan Assessment & Plan (1) CAD (coronary artery disease): Comment: Severe 2 vessel disease with 99% ostial circumflex as well as IFR positive LAD disease Code(s): I25.10 - Atherosclerotic heart disease of [place] coronary artery without angina pectoris Plan: History of CAD. Cardiac catheterization done 05/2022 with significant 2 vessel coronary artery disease. He was managed medically at that time. Echocardiogram done 04/21/2023 showed EF 25-30%, inferior septal, basal anterior septal and mid anterior septal segments akinetic. He has been on appropriate medical management for ischemic cardiomyopathy including metoprolol XL and Entresto for neurohormonal modulation. He has been on aspirin, rosuvastatin with ideal LDL goal less than 70, isosorbide. He denies any anginal sounding symptoms. NYHA class 1. A repeat echocardiogram done 11/08/2023 shows EF 25-30%, inferior septal, basal anterior septal and mid anterior septal akinetic. EF remains low without improvement. May benefit from revascularization. Will send message to Dr. Wilcox regarding possible cardiac catheterization and stenting, verses referral to cardiac surgery. Reviewed with patient and he states understanding. Office visit follow-up to be determined. Continue current medications. Plan to call patient wants treatment plan determined. Emergency care if ever needed for symptoms. (2) Left bundle branch block: Code(s): I44.7 - Left bundle-branch block, unspecified Plan: Noted on prior EKGs. If he requires ICD then CONTRACTS ANALYST D would be recommended (3) Ischemic cardiomyopathy: Code(s): I25.5 - Ischemic cardiomyopathy Plan: As above. No clinical signs of heart failure on examination (4) S/P cardiac catheterization: Comment: 06/02/2022, left main mild irregularities less than 30% stenosis, lad proximal 70% stenosis, GEOVANNA 3 flow, IFR 0.89, moderate risk, 2nd diagonal ostial 70% stenosis, GEOVANNA 3 flow, low risk, left circumflex proximal ostial 99% stenosis, VIOLIN TUTOR, RCA mild diffuse disease, less than 30%, collateral flow from the 1st RPL to the proximal left circumflex Code(s): Z98.890 - Other specified postprocedural states Plan: As above Plan Time spent on chart review, documentation, interview and assessment Coding Level of Care Code Est Pt Level 4 (01659) Diagnoses CAD (coronary artery disease) I25.10 Left bundle branch block I44.7 Ischemic cardiomyopathy I25.5 S/P cardiac catheterization Z98.890 Time Spent (min) 30
== END 2023-11-11 09:49 | disposition home or self-care (01) ==
PROVIDERS: PCP Internal Medicine Geriatric Medicine; Visit Provider Nurse Practitioner Family
DX: I25.10 Atherosclerotic heart disease of native coronary artery without angina pectoris (principal); I44.7 Left bundle-branch block, unspecified; I25.5 Ischemic cardiomyopathy; Z98.890 Other specified postprocedural states
CPT/HCPCS: 99214

== ENCOUNTER → 2023-11-11 09:21 | Outpatient (BNVA) | payer MEDICARE, SELFPAY | PROVIDERS: PCP Internal Medicine Geriatric Medicine; Visit Provider Nurse Practitioner Family | DX: I25.10 Atherosclerotic heart disease of native coronary artery without angina pectoris (principal); I44.7 Left bundle-branch block, unspecified; I25.5 Ischemic cardiomyopathy; Z98.890 Other specified postprocedural states | CPT/HCPCS: 99212 ==

== ENCOUNTER 2024-01-24 08:53 | Outpatient (REF) | payer MEDICARE, SELFPAY ==
[2024-01-24 11:13] LABS: MANUAL DIFF FLAG NO
[2024-01-24 11:27] LABS: Basophils Absolute Auto 0.1 X10*3/uL (0.0-0.2); Basophils Percent Auto 0.5 % (0-2); Eosinophils Absolute Auto 0.2 X10*3/uL (0.0-0.4); Eosinophils Percent Auto 1.8 % (0-4); Hematocrit 47.4 % (42.0-52.0); Imm Gran Abs Auto 0.03 X10*3/uL (0.00-0.03); Imm Gran Pct Auto 0.3 % (0.0-0.4); Lymphocytes Absolute Auto 2.7 X10*3/uL (1.2-4.9); Lymphocytes Percent Auto 29.4 % (20-40); Mean Corpuscular HGB Conc 31.6 g/dl (31.0-36.0); Mean Corpuscular Hemoglobin 27.6 pg (27.0-33.0); Mean Corpuscular Volume 87.3 fL (80.0-98.0); Mean Platelet Volume 11.5 fL (9.4-12.4); Monocytes Absolute Auto 0.9 X10*3/uL (0.1-1.2); Monocytes Percent Auto 9.9 % (2-11); Neutrophils Absolute Auto 5.4 x10*3/uL (2.0-8.3); Neutrophils Percent Auto 58.1 % (45-73); Platelet Count 199 X10*3/uL (160-400); Red Blood Count 5.43 X10*6/uL (4.60-5.80); Red Cell Distribution Width 13.3 % (11.0-16.0); White Blood Count 9.3 X10*3/uL (4.8-10.8)
[2024-01-24 12:09] LABS: Alanine Aminotransferase 29 U/L (0-40); Albumin Level 4.5 g/dL (3.5-5.0); Alkaline Phosphatase 69 U/L (39-117); Anion Gap 13 (12-20); Aspartate Amino Transferase 27 U/L (5-37); Bilirubin Total 0.6 mg/dL (0.0-1.0); Blood Urea Nitrogen 15 mg/dL (9-16); Carbon Dioxide 28 mmol/L (22-29); Chloride 104 mmol/L (96-108); Cholesterol 90 mg/dL (<200); Estimated Glomerular Filt Rate > 60; Glucose Random 134 mg/dL (60-115); HDL Cholesterol 30 mg/dL (>40); LDL Cholesterol Calculated 33 mg/dL (<100); Potassium 5.1 mmol/L (3.3-5.1); Sodium 140 mmol/L (135-145); Total Protein 7.9 g/dL (6.5-8.0); Triglycerides 135 mg/dL (<150)
== END 2024-01-24 08:54 | disposition home or self-care (01) ==
LOC: HO.HHCL 08:53
PROVIDERS: Visit Provider Internal Medicine Geriatric Medicine
DX: E11.69 Type 2 diabetes mellitus with other specified complication (principal); I50.22 Chronic systolic (congestive) heart failure; Z79.4 Long term (current) use of insulin
CPT/HCPCS: 36415; 80053; 80061; 85025

== ENCOUNTER 2024-04-10 10:13 | Outpatient (REF) | payer MEDICARE, SELFPAY ==
[2024-04-10 11:58] LABS: Anion Gap 14 (12-20); Blood Urea Nitrogen 19 mg/dL (9-16); Calcium 10.3 mg/dL (8.4-10.2); Carbon Dioxide 28 mmol/L (22-29); Chloride 102 mmol/L (96-108); Estimated Glomerular Filt Rate > 60; Glucose Random 144 mg/dL (60-115); Sodium 139 mmol/L (135-145)
[2024-04-10 14:15] LABS: Creatinine Urine 39.74 mg/dL; Microalbum/Creatinine Ratio Ur 62.9 ug/mg cr (<30)
== END 2024-04-10 10:14 | disposition home or self-care (01) ==
LOC: HO.HHCL 10:13
PROVIDERS: Visit Provider Internal Medicine Geriatric Medicine
DX: I50.22 Chronic systolic (congestive) heart failure (principal); E11.69 Type 2 diabetes mellitus with other specified complication; Z79.4 Long term (current) use of insulin
CPT/HCPCS: 36415; 80048; 82043; 82570

== ENCOUNTER 2024-07-10 11:49 | Outpatient (REF) | payer MEDICARE, SELFPAY ==
[2024-07-10 13:50] LABS: Alanine Aminotransferase 22 U/L (0-40); Albumin Level 4.5 g/dL (3.5-5.0); Alkaline Phosphatase 58 U/L (39-117); Anion Gap 13 (12-20); Aspartate Amino Transferase 24 U/L (5-37); Bilirubin Total 0.6 mg/dL (0.0-1.0); Blood Urea Nitrogen 16 mg/dL (9-16); Calcium 10.4 mg/dL (8.4-10.2); Carbon Dioxide 27 mmol/L (22-29); Chloride 104 mmol/L (96-108); Estimated Glomerular Filt Rate 57; Glucose Random 115 mg/dL (60-115); Sodium 139 mmol/L (135-145); Total Protein 7.7 g/dL (6.5-8.0)
== END 2024-07-10 11:50 | disposition home or self-care (01) ==
LOC: HO.HHCL 11:49
PROVIDERS: Visit Provider Internal Medicine Geriatric Medicine
DX: E11.69 Type 2 diabetes mellitus with other specified complication (principal); Z79.4 Long term (current) use of insulin; I50.22 Chronic systolic (congestive) heart failure
CPT/HCPCS: 36415; 80053

== ENCOUNTER 2025-04-19 09:05 | Outpatient (AMB) | payer OTHER, SELFPAY ==
[2025-04-19 09:09] VITALS: BP 114/52; PULSE 74; BMI 25.2
--- NOTE | 2025-04-19 09:09 | MHC.OFFVIS ---
Vital Signs 04/19/25 09:09 Height 5 ft 8 in Weight 165 lb 12.602 oz BMI 25.2 BP 114/52 L Blood Pressure Location Lt brachial Position Sitting Pulse 74 Pulse Source Monitor Intake Visit Reasons: CAD (coronary artery disease) Sling Operator Required: Yes Sling Operator Language: Blast Furnace Keeper Name: voice mccord [id number] Allergies No Known Allergies [No Known Allergies*] Allergy (Verified 04/19/25 09:11) Medication List - Last Reconciled 04/19/25 by SARA Barragan albuterol sulfate 90 mcg/actuation 2 puffs PO Q4-6H PRN aspirin 81 mg PO DAILY dulaglutide (Trulicity) mg subcut insulin NPH and regular human 100 unit/mL (70-30) (Humulin 70/30 U-100 Insulin) mL subcut isosorbide mononitrate ER 60 mg PO DAILY metformin 1,000 mg PO BID metoprolol succinate ER 50 mg PO DAILY nitroglycerin 0.4 mg sublingual Q5M PRN rosuvastatin 40 mg PO DAILY sacubitril-valsartan 24-26 mg (Entresto) 1 tab PO BID HPI HPI CAD (coronary artery disease): Details: Danny is a 69-year-old male with past medical history of hyperlipidemia, hypertension, diabetes, coronary artery disease, left bundle branch block, ischemic cardiomyopathy who presents for follow-up. His last visit to our office was 11/11/2023. Today he reports that he has been feeling well with no concerning symptoms. He denies chest discomfort at rest or with activity. He denies having shortness of breath, palpitations, presyncope, syncope, PND, orthopnea or edema. He says he walks frequently and tolerates normal ADLs without symptoms. He says he can climb a flight of stairs without symptoms. He is taking all meds as directed. Certified mixing tumbler operator used. [facility] Medical History CAD (coronary artery disease) HTN (hypertension) Diabetes Surgical History H/O eye surgery Family History Brother Cancer Diabetes Sister Diabetes Social History Household Members: Spouse Alcohol intake: current Alcohol intake frequency: a few times a month Review of Systems Const All systems reviewed & are unremarkable except as noted in HPI and below ENT Denies dizziness Card Denies chest pain, Denies chest pain at rest, Denies chest pain with activity, Denies rapid heart rate, Denies pedal edema, Denies edema, Denies leg edema, Denies lightheadedness, Denies palpitations, Denies dyspnea, Denies dyspnea on exertion and Denies orthopnea Resp Denies cough, Denies dyspnea and Denies dyspnea on exertion GI Denies hematochezia and Denies change in stool character Musc Denies abnormal gait, Denies limited range of motion, Denies muscle cramps, Denies muscle weakness, Denies numbness, Denies radiating pain into limb, Denies stiffness and Denies tingling Neuro Denies abnormal gait, Denies dizziness, Denies numbness and Denies tingling Endo Denies palpitations Physical Exam Vital Signs: Last Vital Signs Pulse 74 04/19/25 09:09 BP 114/52 L 04/19/25 09:09 BMI result Body Mass Index 25.2 Const General: cooperative, healthy appearing, comfortable and no acute distress Orientation/consciousness: patient oriented x3 Neck Neck: Yes normal visual inspection Resp Effort & Inspection: normal respiratory effort Auscultation: clear to auscultation bilaterally, no crackles, no rales, no rhonchi and no wheezes Cardio Jugular venous distension: no JVD Rate: regular rate Rhythm: regular rhythm Heart sounds: S1 normal heart sound present, S2 normal heart sound present, no murmurs and no rubs Neuro General: patient oriented x3 Extrem General: Yes normal to inspection Psych Appearance: grossly normal Mental Status: mental status grossly normal Speech and movement: Normal speech and movement present Office Procedures EKG Details: Today, read by me, sinus rhythm with first-degree AV block, left bundle branch block, ST and T-wave abnormality inferior lateral leads which is unchanged from prior EKG rate 74, QTC 468 millisecond [id number], Complete Results Reviewed Results Reviewed: - Echocardiogram (11/08/2023): EF 25-30% with inferior septal, basal anterior septal, and mid-anterior septal akinesis - EKG: Sinus rhythm, first-degree AV block, left bundle branch block, heart rate 74 bpm - Laboratory (07/10/2024): Potassium 5.0 mmol/L, creatinine 1.25 mg/dL, LDL 33 mg/dL Assessment & Plan Assessment & Plan (1) CAD (coronary artery disease): Comment: Severe 2 vessel disease with 99% ostial circumflex as well as IFR positive LAD disease Code(s): I25.10 - Atherosclerotic heart disease of [place] coronary artery without angina pectoris Category: Medical Plan: History of CAD. Cardiac catheterization done 05/2022 with significant 2 vessel coronary artery disease. He was managed medically at that time. Echocardiogram done 04/21/2023 showed EF 25-30%, inferior septal, basal anterior septal and mid anterior septal segments akinetic. He has been on appropriate medical management for ischemic cardiomyopathy including metoprolol XL and Entresto for neurohormonal modulation. He has been on aspirin, rosuvastatin with ideal LDL goal less than 70, isosorbide. He denies any anginal sounding symptoms. NYHA class 1. Last echocardiogram done 11/08/2023 shows EF 25-30%, inferior septal, basal anterior septal and mid anterior septal akinetic. - he did not have follow-up between 11/11/2023 and today. He is not fluid overloaded on exam. Will update echocardiogram. He ensures med compliance. (2) Left bundle branch block: Code(s): I44.7 - Left bundle-branch block, unspecified Category: Medical Plan: Noted on prior EKGs. If he requires ICD then DEMOLITION CRANE OPERATOR D would be recommended (3) Ischemic cardiomyopathy: Code(s): I25.5 - Ischemic cardiomyopathy Category: Medical Plan: As above. No clinical signs of heart failure on examination (4) S/P cardiac catheterization: Comment: 06/02/2022, left main mild irregularities less than 30% stenosis, lad proximal 70% stenosis, GEOVANNA 3 flow, IFR 0.89, moderate risk, 2nd diagonal ostial 70% stenosis, GEOVANNA 3 flow, low risk, left circumflex proximal ostial 99% stenosis, FORMING MACHINE UPKEEP MECHANIC HELPER, RCA mild diffuse disease, less than 30%, collateral flow from the 1st RPL to the proximal left circumflex Code(s): Z98.890 - Other specified postprocedural states Category: Surgical Plan: As above Plan Time spent on chart review, documentation, interview and assessment As ordered During our discussion, I explained the need for a repeat echocardiogram to the patient to evaluate the status of his cardiac function. The potential for an implantable cardio-defibrillator should the heart function remain compromised was discussed in detail, including the benefits of preventing sudden cardiac events and the associated risks and procedural considerations. I described the current medications and reinforced the importance of adherence, elaborating on the significance of the medication regimen in managing his cardiac condition. We discussed that a centralized lead former will contact the patient for echocardiogram timing, with plans for follow-up based on clinical findings. I assured the patient of maintaining communication regarding all results and decisions. Orders: Orders Comprehensive Met. Panel Today I25.10 - Atherosclerotic heart disease of [place] coronary artery without angina pectoris Lipid Panel Today I44.7 - Left bundle-branch block, unspecified CA echo transthoracic complete Today I25.10 - Atherosclerotic heart disease of [place] coronary artery without angina pectoris, I25.5 - Ischemic cardiomyopathy, I44.7 - Left bundle-branch block, unspecified Patient Instructions: - Continue taking all prescribed medications as directed. - Attend the scheduled echocardiogram appointment. - Complete labs as ordered. - Report any new or worsening symptoms, particularly chest pain or increased shortness of breath. - Follow-up visit is in six months, or earlier if required based on test results. - Maintain routine activities, but avoid excessive exertion. Patient was informed and verbally consented to the use of an ambient scribe for clinic note documentation during this visit. Coding Level of Care Code Est Pt Level 4 (39034) Complex EM visit Add On G2211 Diagnoses CAD (coronary artery disease) I25.10 Left bundle branch block I44.7 Ischemic cardiomyopathy I25.5 S/P cardiac catheterization Z98.890 CPT Codes EKG - CPT: 52038-[id number], Complete ([id number]) Time Spent (min) 32
== END 2025-04-19 09:42 | disposition home or self-care (01) ==
LOC: HO.HCS 09:05
PROVIDERS: PCP Internal Medicine Geriatric Medicine; Visit Provider Nurse Practitioner Family
DX: I25.10 Atherosclerotic heart disease of native coronary artery without angina pectoris (principal); I44.7 Left bundle-branch block, unspecified; I25.5 Ischemic cardiomyopathy; Z98.890 Other specified postprocedural states
CPT/HCPCS: 93010; 99214

== ENCOUNTER → 2025-04-19 09:05 | Outpatient (BNVA) | payer MEDICARE, SELFPAY | PROVIDERS: PCP Internal Medicine Geriatric Medicine; Visit Provider Nurse Practitioner Family | DX: I25.10 Atherosclerotic heart disease of native coronary artery without angina pectoris (principal); I10 Essential (primary) hypertension; I44.7 Left bundle-branch block, unspecified; I25.5 Ischemic cardiomyopathy; Z98.890 Other specified postprocedural states | CPT/HCPCS: 93005 ==

== ENCOUNTER 2025-05-03 07:28 | Outpatient (REF) | payer MEDICARE, SELFPAY ==
[2025-05-03 08:16] LABS: Alanine Aminotransferase 23 U/L (0-40); Albumin Level 4.4 g/dL (3.5-5.0); Alkaline Phosphatase 55 U/L (39-117); Anion Gap 10 (12-20); Aspartate Amino Transferase 29 U/L (5-37); Bilirubin Total 0.4 mg/dL (0.0-1.0); Blood Urea Nitrogen 18 mg/dL (9-16); Calcium 9.6 mg/dL (8.4-10.2); Carbon Dioxide 29 mmol/L (22-29); Chloride 106 mmol/L (96-108); Cholesterol 111 mg/dL (<200); Estimated Glomerular Filt Rate 60; Glucose Random 98 mg/dL (60-115); HDL Cholesterol 40 mg/dL (>40); LDL Cholesterol Calculated 49 mg/dL (<100); Potassium 4.6 mmol/L (3.3-5.1); Sodium 140 mmol/L (135-145); Total Protein 7.4 g/dL (6.5-8.0); Triglycerides 113 mg/dL (<150)
[2025-05-03 09:07] LABS: Creatinine Urine 80.96 mg/dL; Microalbum/Creatinine Ratio Ur 32.1 ug/mg cr (<30)
== END 2025-05-03 07:29 | disposition home or self-care (01) ==
LOC: HO.LAB 07:28
PROVIDERS: Nurse Practitioner Family; PCP Internal Medicine Geriatric Medicine; Visit Provider Internal Medicine Geriatric Medicine
DX: I25.10 Atherosclerotic heart disease of native coronary artery without angina pectoris (principal); I44.7 Left bundle-branch block, unspecified; E11.69 Type 2 diabetes mellitus with other specified complication; Z79.4 Long term (current) use of insulin
CPT/HCPCS: 36415; 80053; 80061; 82043; 82570

== ENCOUNTER → 2025-05-20 12:31 | Outpatient (REF) | payer MEDICARE, SELFPAY ==
--- NOTE | 2025-05-20 12:34 | CA_ITS ---
Transthoracic Echocardiogram Patient (Last, First, Middle): Danny Martinez, Gender: Male Date of : 1955 Age: 69 Procedure Date: 05/20/2025 Procedure Type: Transthoracic Echocardiogram Location: OP Height: 172.72 cm Weight: 74.84 kg BSA: 1.88 m2 Heart Rate: bpm BP: 114 / 52 mmHg Web Site Designer: MARK Referring MD: Sadie Carranza SERVICE LINE LAYERDana Symptoms: I25.10 - Atherosclerotic heart disease of [place] coronary artery without... Study Quality: Fair, contrast Conclusions: - The left ventricular systolic function is severely decreased. The visually estimated ejection fraction is between 15-20%. - Wall motion abnormalities related to underlying coronary disease. - No obvious valvular pathology seen on this study. Findings Procedure Information Contrast agent, definity, is being given per protocol without apparent complications. Left Ventricle Normal left ventricular cavity size. There is normal left ventricular wall thickness. The left ventricular systolic function is severely decreased. The visually estimated ejection fraction is between 15-20%. There is evidence of regional wall motion abnormalities. Evidence suggests grade I (mild) diastolic dysfunction. Wall Motion Rest Echo Findings The anterior wall, anterolateral wall, inferolateral wall, the basal inferior, and mid inferior segments are hypokinetic. The entire septum, the apex, and apical inferior segments are akinetic. Right Ventricle Normal right ventricular cavity size and systolic function. Atria Both atria are normal in size. Aortic Valve There is a normal trileaflet aortic valve. There is mild calcification of the aortic valve. There is no aortic valve stenosis. There is no aortic valve regurgitation. Mitral Valve The mitral valve appears normal. There is no mitral valve regurgitation. There is no mitral valve stenosis. Pulmonic Valve The pulmonic valve is likely normal. Tricuspid Valve There is trace tricuspid valve regurgitation. There is no evidence of pulmonary hypertension. Great Vessels The asc aorta is normal in size. Venous The inferior vena cava is normal in size and collapses greater than 50% with inspiration. Pericardium/Pleural There is no evidence of pericardial effusion. Prior Study Comparison Changes noted compared to prior study dated: 11/08/2023. LVEF lower than previously reported. Wall motion abnormalities more prominent. Recommendations, Care & Conclusions No obvious valvular pathology seen on this study. Measurements 2D Linear Measurements IVSd: 0.87 0.6-0.9/0.6-1.0 cm LVIDd: 5.29 3.9-5.3/4.2-5.9 cm LVIDd Index: 2.81 2.4-3.2/2.2-3.1 cm/m2 LVIDs: 4.34 2.0-3.6 cm LVPWd: 0.81 0.7-1.1 cm LA Diam: 3.00 2.7-3.8/3.0-4.0 cm LAIDs Index: 1.60 1.5-2.3 cm/m2 LV Mass: 198.04 67-162/88-224 g LV Mass Index: 105.34 43-95/49-115 g/m2 LVOT Diam: 2.10 3.0+(-)1.3 cm 2D Systolic Function EF 4C: 37.80 >55% EF 2C: 41.30 >55% EF BiP: 37.60 >55% Mitral Valve MV Pk E: 0.44 MV PK A: 0.89 MV Decel Time: 251.00 E/A: 0.50 E'Lateral: 4.90 E'Medial: 2.72 E/E' Med: 16.20 E/E' Lat: 9.00 PHT: 74.00 MVA PHT: 2.97 Decel Arroyo: 1.76 Aortic Valve AoV Pk Jaime: 0.99 AoV Mn Jaime: 0.69 AoV VTI: 0.19 AoV Pk Grad: 4.00 Aov Mn Grad: 2.00 MELISSA Cont.VTI: 2.38 LVOT LVOT Pk Jaime: 0.73 LVOT Mn Jaime: 0.46 LVOT VTI: 0.13 LVOT Pk Grad: 2.00 LVOT Mn Grad: 1.00 LVOT Diam: 2.10 LVOT Area: 3.46 Diastolic Function MV Pk E: 0.44 MV Pk A: 0.89 E/A: 0.50 E'Medial: 2.72 E/E' Med: 16.20 E' Laterial: 4.90 E/E' Lat: 9.00 Right Ventricle TAPSE (mm): 25.40 TVS' Jaime: 12.00 Tricuspid Valve RA Press: 3.00 Great Vessels Aorta Sinus of Valsalva: 3.64 2.0-3.5 cm Ao Asc: 3.20 2.1-3.4 cm Updated in Other Vendor System with Status of Final Alex Ocampo MD electronically signed on 05/21/2025 10:54:06 AM with status of Final
--- OUTSIDE RECORDS SUMMARY | 2025-05-20 13:51 | XMS_ITS | Clinical Summary ---
Author Organization [employer] Address [address] [place] [address] [address] [place] [address] Care Team Providers Care Terminal Computer Operator Name Role Phone Name, Andres CRISTOBAL Primary Care Provider [phone] Allergies Active Allergy Reactions Criticality Noted Date Comments Atorvastatin Dizziness 07/04/2021 Medications aspirin 81 MG EC tablet Take 1 tablet by mouth at bed time. Active albuterol 108 (90 Base) MCG/ACT inhaler Inhale 2 puffs every 4 (four) hours. Active glucose blood (FREESTYLE LITE) test strip every 8 (eight) hours. Active glucose-vitami n C 4-6 GM-MG oral gel chew 2-4 tablets PO as needed for hypoglycemia Active isosorbide mononitrate ER (Imdur) 60 MG 24 hr tablet Take 60 mg by mouth in the morning. Active metoprolol succinate XL (Toprol-XL) 50 MG 24 hr tablet TAKE 1 TABLET BY MOUTH EVERY DAY, CALL MD FOR APPOINTMENT Active nitroglycerin (Nitrostat) 0.4 MG SL tablet DISSOLVE 1 TABLET UNDER THE TONGUE EVERY 5 MINUTES NEEDED FOR CHEST PAIN. CALL 911 IF NO RELIEF Active rosuvastatin (Crestor) 40 MG tablet TAKE 1 TABLET BY MOUTH EVERY DAY, CALL MD FOR APPOINTMENT 023 Active Entresto 24-26 MG tablet Active metFORMIN (Glucophage) 1000 MG tabletIndicati ons:Type 2 diabetes mellitus with other specified complication, with long-term current use of insulin (CMS/HCC) TAKE 1 TABLET BY MOUTH TWICE DAILY IN THE MORNING AND IN THE EVENING WITH MEALS 180 tablet 3 024 Active FREESTYLE LITE test stripIndicatio ns:Type 2 diabetes mellitus with other specified complication, with long-term current use of insulin (CMS/[facility]) Use to test blood sugar 3 times daily 100 each 024 2024 Active Lancets miscIndication s:Type 2 diabetes mellitus with other specified complication, with long-term current use of insulin (CMS/HCC) Use to test blood sugar 3 times daily 100 each 024 Active Blood Glucose Monitoring Suppl (FreeStyle [place] Lite) w/Device kitIndications :Type 2 diabetes mellitus with other specified complication, with long-term current use of insulin ([facility]) Use to test blood sugar 3 times daily 1 kit 024 Active HumuLIN 70/30 (70-30) 100 UNIT/ML injectionIndic ations:Type 2 diabetes mellitus with other specified complication, with long-term current use of insulin (CMS/[facility]) INJECT 25 UNITS SUBCUTANEOUSLY EVERY DAY IN THE MORNING AND 15 UNITS SUBCUTANEOUSLY EVERY DAY IN THE EVENING 20 mL 3 025 Active Trulicity 0.75 MG/0.5ML solution auto-injector INJECT ONE PEN (=0.75MG) SUBCUTANEOUSLY ONCE A WEEK DIRECTED 2 mL 025 Active Blood Glucose Monitoring Suppl (ONE TOUCH ULTRA 2) w/Device kitIndications :Type 2 diabetes mellitus with other specified complication, with long-term current use of insulin (CMS/[facility]) Use to test blood sugar 3 times daily 1 kit 025 Active glucose blood test stripIndicatio ns:Type 2 diabetes mellitus with other specified complication, with long-term current use of insulin (CMS/[facility]) Use to test blood sugar 3 times daily 100 each 025 Active OneTouch Delica Lancets 33G miscIndication s:Type 2 diabetes mellitus with other specified complication, with long-term current use of insulin (CMS/[facility]) Use to test blood sugar 3 times daily. 100 each 025 Active Jardiance 10 MGIndications: Type 2 diabetes mellitus with other specified complication, with long-term current use of insulin (CMS/[facility]),Citrix Consultant jenise systolic heart failure (CMS/HCC) TAKE 1 TABLET BY MOUTH EVERY DAY IN THE MORNING 30 tablet 2 025 Active insulin syringe-needle U-100 (HM UltiCare Insulin Syringe) 31G X 5/16 0.3 mL misc Use as instructed 100 each 12 025 2025 Active Jardiance 10 MGIndications: Type 2 diabetes mellitus with other specified complication, with long-term current use of insulin (CMS/HCC),[employer] Consultant jenise systolic heart failure (CMS/HCC) TAKE 1 TABLET BY MOUTH EVERY MORNING 90 tablet 025 2024 Discontinued UltiCare Insulin Syringe 30G X 5/16 0.5 ML miscIndication s:Type 2 diabetes mellitus with other specified complication, with long-term current use of insulin (CMS/HCC) USE DIRECTED TWICE DAILY WITH INSULIN 100 each 3 025 2024 Discontinued Active Problems Problem Noted Date Diagnosed Date Partial edentulism 08/07/2024 Dental root caries 08/07/2024 LBBB (left bundle branch block) 12/28/2023 Preop examination 08/28/2023 Assessment & Plan (08/28/2023 12:16 AM EDT): -RCRI is 3 -pt is a high risk patient going for a minimal risk procedure Pt with feeling well with no active CV Symptoms with DM ,HTN and CAD controlled -There are no contraindications for procedure -I spoke today with her firefighter's office ( Dr Del Real) and was told as well that pt can have procedure to continue ASA until day of procedure -advised pt to decrease her pm insulin dose to half dose and hold insulin am of procedure. Ok to take BB day of surgery and to hold rest of meds on am of surgery and to resume all meds after procedure if ok with international trade analyst. -To avoid NSAIDS 1 week before procedure -this note will be faxed to international trade analyst Low back pain radiating to both legs 12/16/2022 Coronary arteriosclerosis 12/16/2022 Overview (04/20/2023): cardiac catheterization from May 2022 at [facility] which shows severe 2 vessel disease including proximal mid LAD with diffuse disease as well as ostial circumflex disease with collaterals from the right system. RCA was nonobstructive Chronic systolic heart failure 12/16/2022 Overview (04/20/2023): Ischemic. EF of 25% last 04/2022, shown large area of fixed defects in LAD territory suggestive infarction. LV gated EF of 25% which is confirmed by echocardiogram. 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 Carpal tunnel syndrome 01/17/2018 Cubital tunnel syndrome 01/11/2018 Type 2 diabetes mellitus 12/16/2017 Stress and adjustment reaction 12/16/2017 Essential hypertension 12/16/2017 Resolved Problems Problem Noted Date Diagnosed Date Resolved Date Vitreous floaters 12/16/2022 09/28/2023 Exercise-induced angina 12/16/202203/28 Congestive heart failure 10/08/2021 Encounters Date Type Department Care Team Description 05/03/2025 Orders Only GENERIC EXTERNAL DATA DEPARTMENT Provider, Generic External Data 05/02/2025 11:30 AM EDT Office Visit [facility] [address] [place] [address] Andres Haddad MD Type 2 diabetes mellitus with other specified complication, with long-term current use of insulin (CMS/[facility]) (Primary Dx); Chronic systolic heart failure (CMS/HCC) 05/02/2025 Travel 05/01/2025 Telephone [facility] [address] [place], [place] [phone] Bhavana White MA Chart Prep 04/21/2025 Refill [facility] [address], [place] [phone] Katya Whiteside DO Type 2 diabetes mellitus with other specified complication, with long-term current use of insulin (CMS/HCC); Chronic systolic heart failure (CMS/HCC) 04/09/2025 Refill [facility] [address], [place] [phone] Andres Haddad MD Type 2 diabetes mellitus with other specified complication, with long-term current use of insulin ([facility]) (Primary Dx); Type 2 diabetes mellitus with other specified complication, with long-term current use of insulin ([facility]) 03/25/2025 Refill [facility] [address] [place] [address] Name, MD Andres from Last 3 Months Immunizations Immunization Administration Dates Next Due Influenza High-dose Quadriva lent Preservative Free 09/28/2023,10/14/2020 Influenza injectable quadriv alent IIV4 with preservative 09/10/2019 Influenza injectable quadriv alent preservative free 08/16/2022,10/14/2021,09/29/2017 Influenza, High Dose Seasona l, Preservative Free 09/21/2024 Pneumococcal Conjugate PCV 20 08/16/2022 RSV Bivalent 12/28/2023 Tdap 08/16/2022 Social History Tobacco Use Types Packs/Day Years Used Date Smoking Tobacco: Never Passive Smoke Exposure: Never Tobacco Cessation:Counseling Given: Not Answered Alcohol Use Standard Drinks/Week Comments Never 0 (1 standard drink = 0.6 oz pur e alcohol) Alcohol Answer Date Recorded Frequency of Alcohol Consumption Not on file 07/10/2024 Average Number of Drinks Not on file 024 Frequency of Binge Drinking Not on file 06/28 Score 0 07/10/2024 Depression Answer Date Recorded Patient Health Questionnaire-9 Score 0 05/02/2025 Patient Health Questionnaire-9 Score 0 05/02/2025 Last PHQ-9: Questionnaire Data Not on file 0 05/02/2025 Housing Stability Answer Date Recorded What is your housing situation today? I have kayla vallejo 05/02/[address] you li ve. Do you have problems with any of the following? None of the above 05/02/2025 Food Insecurity Answer Date Recorded Within the past 12 months, y ou worried that your food would run out before you got money to buy more: Never True 05/02/2025 Within the past 12 months,th e food you bought just didn't last and you didn't have enough money to get more: Never True 03/2025 Transportation Answer Date Recorded In the past 12 months, has l ack of transportation kept you from medical appts, meetings, work or from getting things needed for daily living? No 05/02/2025 Utilities Answer Date Recorded In the past 12 months, has t he electric, gas, oil or water company threatened to shut off services in your home? No 05/02/2025 Depression Answer Date Recorded Patient Health Questionnaire-2 Score 0 05/02/2025 Internet Access Answer Date Recorded Internet Access Q1 Yes 05/02/2025 Internet Access Q2 Not on file 05/02/2025 Sex and Gender Information Value Date Recorded Sex Assigned at Male 09/27/2022 10:32 AM EDT Legal Sex Male 10:32 AM EDT Gender Identity Male 09/27/2022 10:32 AM EDT Sexual Orientation Straight 09/27/2022 10 :32 AM EDT Last Filed Vital Signs Vital Sign Reading Time Taken Comments Blood Pressure 102/74 05/02/2025 11:34 AM EDT Pulse 73 05/02/2025 11:34 AM EDT Temperature 36.9 C (98.4 F) 05/02/2025 11:34 AM EDT Respiratory Rate 16 05/02/2025 11:34 AM EDT Oxygen Saturation 95% 05/02/2025 11:34 AM EDT Inhaled Oxygen Concentration - - Weight 77 kg (169 lb 12.8 oz) 05/02/2025 11:34 A M EDT Height 172.7 cm (5' 8 ) 05/02/2025 11:34 AM EDT Body Mass Index 25.82 05/02/2025 11:34 AM EDT Plan of Treatment Upcoming Encounters Date Type Department Care Team (Late st Contact Info) Description 08/19/2025 3:00 PM EDT Office Visit [facility] [address] [place] [address] Anil, Paola, OD [address] [place] [address] Health Maintenance Due Date Last Done Comments CT Colonography 1955 Dental Prophylaxis 1955 FIT DNA/Cologuard 1955 FIT 1955 FOBT 1955 Sigmoidoscopy 1955 Hepatitis C Screening 1972 Zoster Vaccines (1 of 2) 2004 Colonoscopy 04/20/2022 04/20/2021 Colorectal Cancer Screening 04/20/2022 COVID-19 Vaccine ( season) 2024 04/12/2022, 10/14/2021, 03/17/2021, Additional history exists Dental Oral Exam 02/05/2025 08/07/2024 Eye Exam 03/28/2025 03/28/2024, 10/18/2022 Diabetes: Foot Exam 04/10/2025 04/10/2024, 04/10/2024, 04/10/2024, Additional history exists Alcohol/Substance Use Screening 07/10/2025 07/10/2024 Dental X-Ray: Bitewings 08/08/2025 08/07/2024 Diabetes: Hemoglobin A1C 11/01/2025 025, 04/10/2024, 12/28/2023, Additional history exists Depression Screening 05/02/2026 05/02/2025, 05/02/20 SDOH Screening 05/02/2026 05/02/2025 Tobacco Screening 05/02/2026 05/02/2025 Diabetes: Urine Protein Screening 05/03/2026 05/03/2025, 04/10/2024, 02/09/2023, Additional history exists Lipid Panel 05/03/2026 05/03/2025, 12/30, 04/08/2023, Additional history exists Dental X-Ray: Full Mouth 08/08/2027 08/07/2024 DTaP/Tdap/Td Vaccines (2 - Td or Tdap) 08/16/2032 08/16/2022 Pneumococcal Vaccine: 50+ Years Completed 08/16/2022 RSV Patients and Patients Aged 60 years or older Completed 12/28/2023 Influenza Vaccine Completed 09/21/2024, , 08/16/2022, Additional history exists HIB Vaccines Aged Out No longer eligi ble based on patient's age to complete this topic HPV Vaccines Aged Out No longer eligi ble based on patient's age to complete this topic Hepatitis A Vaccines Aged Out No long er eligible based on patient's age to complete this topic Hepatitis B Vaccines Aged Out No long er eligible based on patient's age to complete this topic IPV Vaccines Aged Out No longer eligi ble based on patient's age to complete this topic Meningococcal B Vaccine Aged Out No l onger eligible based on patient's age to complete this topic Meningococcal Vaccine Aged Out No tor[place] thalia eligible based on patient's age to complete this topic RSV under 20 months Aged Out No longe r eligible based on patient's age to complete this topic Rotavirus Vaccines Aged Out No longer eligible based on patient's age to complete this topic Procedures Procedure Name Priority Date/Time Associated Diagnosis Comments LIPID PANEL, STANDARD Routine 05/03/2025 7:40 AM EDT COMPREHENSIVE METABOLIC PANEL Routine 05/03/2025 7:40 AM EDT ALBUMIN, RANDOM URINE W/CREATININE Routine 05/03/2025 7:39 AM EDT Type 2 diabetes mellitus with other specified complication, with long-term current use of insulin ([facility]) POCT GLYCATED HEMOGLOBIN, TOTAL Routine 05/02/2025 11:36 AM EDT Type 2 diabetes mellitus with other specified complication, with long-term current use of insulin ([facility]) POCT GLUCOSE Routine 05/02/2025 11:36 AM EDT Type 2 diabetes mellitus with other specified complication, with long-term current use of insulin ([facility]) INTRAORAL - COMPLETE SERIES OF RADIOGRAPHIC IMAGES Routine 08/07/2024 3:30 PM EDT PERIODIC ORAL EVALUATION - ESTABLISHED PATIENT Routine 08/07/2024 3:30 PM EDT HM COLONOSCOPY Routine 04/20/2021 9:51 AM EDT from Last 3 Months or Most Recently Relevant to Health Maintenance Results * (ABNORMAL) Lipid Panel, Standard (05/03/2025 7:40 AM EDT) Triglycerides 113 <150 mg/dL [facility] Comment:Desirable Triglyceri de: less than 150 mg/dLBorderline High Triglyceride 150-199 mg/dLHigh Triglyceride: 200-499 mg/dLVery High Triglyceride: greater than or equal to 5OO mg/dL Cholesterol 111 <200 mg/dL [facility] Comment:Desirable Cholestero l: less than 200 mg/dLBorderline High Cholesterol: 200-239 mg/dLHigh Cholesterol: greater than 239 mg/dL LDL Cholesterol Calculated 49 <100 mg/dL [facility] Comment:Desirable LDL: less than 100 mg/dLNear Optimal/Above Optimal LDL: 110- 129 mg/dLBorderline High LDL: 130-159 mg/dLHigh LDL: 160-189 mg/dLVery High LDL: greater than or equal to 190 mg/dL HDL Cholesterol 40(L) >40 mg/dL [facility] Comment:Desirable HDL: great er than 40 mg/dL Note: This HDL assay may give artificially low results in patients with liver disease. 05/03/2025 7:40 AM EDT 05/03/2025 7:40 AM EDT us Generic External Data Provider LAB BLOOD ORDERAB LES Final Result [facility] [address] [place] [phone] * (ABNORMAL) Comprehensive Metabolic Panel (05/03/2025 7:40 AM EDT) Sodium 140 135 - 145 mmol/L [facility] Potassium 4.6 3.3 - 5.1 mmol/L [facility] Chloride 106 96 - 108 mmol/L [facility] Carbon Dioxide 29 22 - 29 mmol/L [facility] Anion Gap 10(L) 12 - 20 [facility] Urea Nitrogen (BUN) 18(H) 9 - 16 mg/dL [facility] Creatinine, Serum 1.20 0.5 - 1.4 mg/dL [facility] Estimated Glomerular Filt Rate 60 [facility] Comment:Chronic Kidney Disea se: Estimated GFR < 60 mL/min/[id number] Kidney Disease: Estimated GFR < 15 mL/min/1.73m2 Glucose 98 60 - 115 mg/dL [facility] Calcium 9.6 8.4 - 10.2 mg/dL [facility] Bilirubin, Total 0.4 0.0 - 1.0 mg/dL [facility] Aspartate Amino Transferase 29 5 - 37 U/L [facility] Alanine Aminotransferase 23 0 - 40 U/L [facility] Total Protein 7.4 6.5 - 8.0 g/dL [facility] Albumin Level 4.4 3.5 - 5.0 g/dL [facility] Alkaline Phosphatase 55 39 - 117 U/L [facility] 05/03/2025 7:40 AM EDT 05/03/2025 7:40 AM EDT us Generic External Data Provider LAB BLOOD ORDERAB LES Final Result Performing Organization Address [facility] de Phone Number [facility] [address] [place] [phone] * (ABNORMAL) Albumin, Random Urine W/Creatinine (05/03/2025 7:39 AM EDT) Creatinine, Urine 80.96 mg/dL [facility] Microalbumin Urine 26.0 mg/L [facility] Microalbum Creatinine Ratio Ur 32.1(H) <30 ug/mg cr [facility] Comment:Albumin/Creatinine R atio Reference Ranges: Normal: < 30 ug/mg creatinine Microalbuminuria: 30 - 300 ug/mg creatinineClinical Albuminuria: > 300 ug/mg creatinine Urine (Urine, Random) 05/03/2025 7:39 AM EDT 05/03/2025 7:46 AM EDT us Andres Haddad MD LAB URINE ORDERABLES Final Resul t Performing Organization Address [facility] Co de Phone Number [facility] [address] [place] [phone] * (ABNORMAL) POCT HGB A1C (05/02/2025 11:36 AM EDT) Hemoglobin A1C 6.4(A) 4.0 - 6.0 % QC Media Lot # [id number] Lot# Expiration Date Blood 05/02/2025 11:3 6 AM EDT Andres Name POINT OF CARE TEST ENTER/EDIT OR DERABLES Final Result * (ABNORMAL) POCT Glucose (05/02/2025 11:36 AM EDT) Glucose Blood, POC 204(A) 60 - 200 mg/dL QC Media Lot # [id number] Lot# Expiration Date [id number] Blood Capillary blood specimen / Unknown 05/02/2025 11:36 AM EDT Andres Name POINT OF CARE TEST ENTER/EDIT OR DERABLES Final Result * Hm Colonoscopy (04/20/2021 9:51 AM EDT) Colonoscopy Normal Normal Narrative Melonie Tony - 04/20/2021 9:51 AM EDT Recommended 1 year follow up Historical Provider HEALTH MAINTENANCE Final Result from Last 3 Months or Most Recently Relevant to Health Maintenance Insurance [id number] MEDICARE ADVANTAGE DENTAL - [facility] DENTAL - [place]SN PARTIAL (MEDICAID) Care Teams Terminal Computer Operator Relationship Specialty Start Date End Date Name, MD Andres [address] [place] [address] PCP - General Family Medicine 12/09/17
== END ==
LOC: HO.CARD 12:31
PROVIDERS: PCP Internal Medicine Geriatric Medicine; Visit Provider Nurse Practitioner Family
DX: I25.10 Atherosclerotic heart disease of native coronary artery without angina pectoris (principal); I44.7 Left bundle-branch block, unspecified; I25.5 Ischemic cardiomyopathy
CPT/HCPCS: 93306; Q9957

== ENCOUNTER → 2025-05-20 12:34 | Outpatient (BNV) | payer MEDICARE, SELFPAY | PROVIDERS: PCP Internal Medicine Geriatric Medicine; Visit Provider Internal Medicine | DX: I50.20 Unspecified systolic (congestive) heart failure (principal); I35.8 Other nonrheumatic aortic valve disorders | CPT/HCPCS: 93306 ==

== ENCOUNTER 2025-08-15 07:47 | Outpatient (REF) | payer MEDICARE, SELFPAY ==
--- OUTSIDE RECORDS SUMMARY | 2025-08-15 07:55 | XMS_ITS | Encounter Summary ---
Author Organization [employer] Address [address] [facility] 7t [place] [address] Care Team Providers Care Research Engineer Name Role Phone Name, Andres CRISTOBAL Primary Care Provider [phone] Reason for Visit * Reason Onset Date Comments pre-op 07/27/2023 Encounter Details Date Type Department Care Team ([facility] st Contact Info) Description 07/27/2023 Telephone [facility] MEDICINE [address] [place], [place] [id number] Name, MD Andres [address] [place] [address] pre-op Social History Tobacco Use Types Packs/Day Years Used Date Smoking Tobacco: Never Passive Smoke Exposure: Never Alcohol Use Standard Drinks/Week Comments Never 0 (1 standard drink = 0.6 oz pur e alcohol) Depression Answer Date Recorded Patient Health Questionnaire-9 Score 0 12/16/2022 Depression Answer Date Recorded Patient Health Questionnaire-2 Score 0 12/16/2022 Sex and Gender Information Value Date Recorded Sex Assigned at Male 09/27/2022 10:32 AM EDT Legal Sex Male 10:32 AM EDT Gender Identity Male 09/27/2022 10:32 AM EDT Sexual Orientation Straight 09/27/2022 10 :32 AM EDT documented as of this encounter Miscellaneous Notes * Telephone Encounter - Juno Persaud RN - 08/11/2023 1:28 PM EDT T/ C to [phone] for below message, pt. Schedule for pre-op on 08/26/2029. Chantale verbally agreed and understood. Chantale will contact pt. * Telephone Encounter - Jamaal Hansen - 08/10/2023 3:23 PM EDT Tc from [facility] returning call. Please contact at [phone] * Telephone Encounter - Elke Faria RN - 07/29/2023 11:13 AM EDT TC X1 to surgery office regarding message below. Phone rang for 2 minutes with no answer and no ability to LVM. * Telephone Encounter - Annalee Grande - 07/27/2023 10:34 AM EDT Tc from [facility] requesting a Pre-Op Location: [facility] [address], [facility] Procedure: retinal detachment repair of right eye Date of Procedure: 09/20/23 Lab: n/a EKG: n/a Anesthesia: MAC and peribulbar documented in this encounter Plan of Treatment Upcoming Encounters Date Type Department Care Team (Late st Contact Info) Description 09/17/2025 10:45 AM EDT Office Visit [facility] MEDICINE [address] [place] [address] Name, MD Andres [address] [place] [address] documented as of this encounter Visit Diagnoses Not on filedocumented in this encounter Additional Health Concerns Assessment Noted Time PHQ-9 Depression Total Score: 0 12/16/19 23 9:18 AM EST documented as of this encounter Care Teams Research Engineer Relationship Specialty Start Date End Date Name, MD Andres [address] [place] [id number] PCP - General Family Medicine 12/09/17 documented as of this encounter
--- OUTSIDE RECORDS SUMMARY | 2025-08-15 07:55 | XMS_ITS | Clinical Summary ---
Author Organization [employer] Address [address] [place] [address] 7t [place] [address] Care Team Providers Care Grease Renderer Name Role Phone Name, Andres CRISTOBAL Primary Care Provider [phone] Allergies Active Allergy Reactions Criticality Noted Date Comments Atorvastatin Dizziness 07/04/2021 Medications albuterol 108 (90 Base) MCG/ACT inhaler Inhale 2 puffs every 4 (four) hours. 020 Active isosorbide mononitrate ER (Imdur) 60 MG 24 hr tablet Take 60 mg by mouth in the morning. 023 Active metoprolol succinate XL (Toprol-XL) 50 MG 24 hr tablet TAKE 1 TABLET BY MOUTH EVERY DAY, CALL MD FOR APPOINTMENT 023 Active rosuvastatin (Crestor) 40 MG tablet TAKE 1 TABLET BY MOUTH EVERY DAY, CALL MD FOR APPOINTMENT 023 Active Entresto 24-26 MG tablet 023 Active Lancets miscIndication s:Type 2 diabetes mellitus with other specified complication, with long-term current use of insulin ([facility]) Use to test blood sugar 3 times daily 100 each 11 024 Active Trulicity 0.75 MG/0.5ML solution auto-injector INJECT ONE PEN (=0.75MG) SUBCUTANEOUSLY ONCE A WEEK DIRECTED 2 mL 11 025 Active Blood Glucose Monitoring Suppl (ONE TOUCH ULTRA 2) w/Device kitIndications :Type 2 diabetes mellitus with other specified complication, with long-term current use of insulin ([facility]) Use to test blood sugar 3 times daily 1 kit 025 Active OneTouch Delica Lancets 33G miscIndication s:Type 2 diabetes mellitus with other specified complication, with long-term current use of insulin ([facility]) Use to test blood sugar 3 times daily. 100 each 025 Active insulin syringe-needle U-100 ( UltiCare Insulin Syringe) 31G X 5/16 0.3 mL misc Use as instructed 100 each 12 025 2025 Active metFORMIN (Glucophage) 1000 MG tabletIndicati ons:Type 2 diabetes mellitus with other specified complication, with long-term current use of insulin (CMS/HCC) TAKE 1 TABLET BY MOUTH TWICE DAILY IN THE MORNING AND IN THE EVENING WITH MEALS 180 tablet 3 025 Active Blood Glucose Monitoring Suppl (Accu-Chek Guide Me) w/Device kitIndications :Type 2 diabetes mellitus with other specified complication, with long-term current use of insulin (CMS/HCC) USE TO TEST BLOOD SUGAR THREE TIMES DAILY 1 kit 025 Active glucose blood (Accu-Chek Guide Test) test stripIndicatio ns:Type 2 diabetes mellitus with other specified complication, with long-term current use of insulin (CMS/[facility]) TEST BLOOD SUGAR 3 TIMES A DAY 100 each 025 2025 Active Accu-Chek FastClix Lancets miscIndication s:Type 2 diabetes mellitus with other specified complication, with long-term current use of insulin (CMS/[facility]) 1 Lancet 4 times daily. TEST BLOOD SUGAR 3 TIMES A DAY 100 each 025 Active Jardiance 10 MGIndications: Type 2 diabetes mellitus with other specified complication, with long-term current use of insulin ([facility]),Ruffler jenise systolic heart failure ([facility]) TAKE 1 TABLET BY MOUTH EVERY DAY IN THE MORNING 30 tablet 2 025 Active insulin NPH-insulin regular (HumuLIN 70/30) (70-30) 100 UNIT/ML injectionIndic ations:Type 2 diabetes mellitus with other specified complication, with long-term current use of insulin ([facility]/HCC) INJECT 25 UNITS SUBCUTANEOUSLY EVERY MORNING AND 15 UNITS EVERY EVENING 20 mL 3 025 Active HumuLIN 70/30 (70-30) 100 UNIT/ML injectionIndic ations:Type 2 diabetes mellitus with other specified complication, with long-term current use of insulin (CMS/HCC) INJECT 25 UNITS SUBCUTANEOUSLY EVERY DAY IN THE MORNING AND 15 UNITS SUBCUTANEOUSLY EVERY DAY IN THE EVENING 20 mL 3 025 2024 Discontinued Jardiance 10 MGIndications: Type 2 diabetes mellitus with other specified complication, with long-term current use of insulin (CMS/HCC),Ruffler jenise systolic heart failure (CMS/HCC) TAKE 1 TABLET BY MOUTH EVERY DAY IN THE MORNING 30 tablet 2 025 2024 Discontinued Active Problems Problem Noted [...] for procedure -I spoke today with her umbrella cutter's office ( Dr Del Real) and was [...] all meds after procedure if ok with program clerk. -To avoid NSAIDS 1 week before procedure -this note will be faxed to program clerk Low back pain radiating to both legs 12/16/2022 Coronary arteriosclerosis 12/16/2022 Overview (04/20/2023): cardiac catheterization from May 2022 at [facility] which shows severe 2 vessel disease including [...] Date Vitreous floaters 12/16/2022 09/28/2023 Exercise-induced angina 12/16/2022 05/02/2024 Congestive heart failure 10/08/2021 Encounters Date Type Department Care Team Description 08/07/2025 Refill [facility] MEDICINE [address] [place] [address] Andres Haddad MD Type 2 diabetes mellitus with other specified complication, with long-term current use of insulin ([facility]) 07/17/2025 Refill [facility] MEDICINE [address] [place] [address] Andres Haddad MD Type 2 diabetes mellitus with other specified complication, with long-term current use of insulin ([facility]); Chronic systolic heart failure ([facility]) 07/05/2025 Telephone [facility] MEDICINE [address] [place] [address] Bren Gifford [place] august recalls 06/24/2025 Refill [facility] MEDICINE [address] [place] [address] Andres Haddad MD Type 2 diabetes mellitus with other specified complication, with long-term current use of insulin ([facility]/HCC) 06/20/2025 Refill [facility] MEDICINE [address] [place] [address] Andres Haddad MD Type 2 diabetes mellitus with other specified complication, with long-term current use of insulin ([facility]) 06/07/2025 2:30 PM EDT Office Visit [facility] OPTOMETRY [address] [place] [address] Anil, Paola, OD Mild nonproliferative diabetic retinopathy of both eyes without macular edema associated with type 2 diabetes mellitus (CMS/HCC) (Primary Dx); Corneal guttata of right eye; Epiretinal membrane (ERM) of right eye; Macular scar of right eye; History of retinal detachment; Pseudophakia of both eyes; Presbyopia 06/07/2025 Travel from Last 3 Months Immunizations Immunization Administration [...] Description 09/17/2025 10:45 AM EDT Office Visit [facility] MEDICINE [address] [place] [address] Name, MD Andres [address] [place] [address] Health Maintenance Due Date Last Done Comments CT Colonography 1954 Dental Prophylaxis 1954 FIT DNA/Cologuard 1954 FIT 1954 FOBT 1954 Sigmoidoscopy 1954 Alcohol/Substance Use Screening 1966 Hepatitis C Screening 1972 Zoster Vaccines (1 of 2) 2004 Colonoscopy 04/20/2022 04/20/2021 Colorectal Cancer Screening 04/20/2022 Dental Oral Exam 02/05/2025 08/07/2024 Diabetes: Foot Exam 04/10/2025 04/10/2024, 04/10/2024, 04/10/2024, Additional history exists COVID-19 Vaccine ( season) 2025 04/12/2022, 10/14/2021, 03/17/2021, Additional history exists Influenza Vaccine (#1) 2025 , 09/28/2023, 08/16/2022, Additional history exists Dental X-Ray: Bitewings 08/08/2025 08/07/2024 Diabetes: Hemoglobin A1C 11/01/2025 025, 04/10/2024, 12/28/2023, Additional history exists Depression Screening 05/02/2026 05/02/2025, 05/02/20 25 SDOH Screening 05/02/2026 05/02/2025 Diabetes: Urine Protein Screening 05/03/2026 05/03/2025, 04/10/2024, 02/09/2023, Additional history exists Lipid Panel 05/03/2026 05/03/2025, 12/30, 04/08/2023, Additional history exists Eye Exam 06/07/2026 06/07/2025, 05/28, 06/07/2025, Additional history exists Tobacco Screening 06/20/2026 06/20/2025 Dental X-Ray: Full Mouth 08/08/2027 08/07/2024 DTaP/Tdap/Td Vaccines (2 - Td or Tdap) 08/16/2032 08/16/2022 Pneumococcal Vaccine: 50+ Years Completed 08/16/2022 RSV Patients and Patients Aged 60 years or older Completed 12/28/2023 HIB Vaccines Aged Out No longer eligi [...] Procedure Name Priority Date/Time Associated Diagnosis Comments OCT, RETINA - OU - BOTH EYES Routine 06/07/2025 2:30 PM EDT Epiretinal membrane (ERM) of right eye LIPID PANEL, STANDARD Routine 05/03/2025 7:40 AM EDT ALBUMIN, RANDOM URINE W/CREATININE Routine 05/03/2025 7:39 AM EDT Type 2 diabetes mellitus with other specified complication, with long-term current use of insulin ([facility]) POCT GLYCATED HEMOGLOBIN, TOTAL Routine 05/02/2025 11:36 AM EDT Type 2 diabetes mellitus with other specified complication, with long-term current use of insulin ([facility]) INTRAORAL - COMPLETE SERIES OF RADIOGRAPHIC IMAGES Routine 08/07/2024 3:30 PM EDT PERIODIC ORAL EVALUATION - ESTABLISHED PATIENT Routine 08/07/2024 3:30 PM EDT HM COLONOSCOPY Routine 04/20/2021 9:51 AM EDT from Last 3 Months or Most Recently Relevant to Health Maintenance Results * OCT, Retina - OU - Both Eyes (06/07/2025 2:30 PM EDT) Narrative Paola Ma, OD - 06/20/2025 2:11 PM EDT Images from the original result were not included. OCT [employer] Optical Coherence Tomography Interpretation Report Measurements: OD OS Macula Thickness 223microns 239 microns Test findings: OD: epiretinal membrane (ERM) with foveal and macular irregularity, no cystoid macular edema (CME), central subfoveal scarring, no subretinal fluid (SRF) OS: normal foveal contour, no cystoid macular edema (CME), no retinal pigment epithelium (RPE) disruption, no subretinal fluid (SRF) Impression and Plan: Longstanding decreased vision due to macular scarring. No treatment necessary. Will monitor at her next exam. Paola Ma OD OPHTH TOMOGRAPHY Final Result * (ABNORMAL) Lipid Panel, Standard (05/03/2025 7:40 AM EDT) Triglycerides 113 <150 mg/dL [facility] Comment:Desirable Triglyceri de: less than 150 mg/dLBorderline High Triglyceride 150-199 mg/dLHigh Triglyceride: 200-499 mg/dLVery High Triglyceride: greater than or equal to 5OO mg/dL Cholesterol 111 <200 mg/dL [facility] Comment:Desirable Cholestero l: less than 200 mg/dLBorderline High Cholesterol: 200-239 mg/dLHigh Cholesterol: greater than 239 mg/dL LDL Cholesterol Calculated 49 <100 mg/dL [facility] Comment:Desirable LDL: less than 100 mg/dLNear Optimal/Above Optimal LDL: 110- 129 mg/dLBorderline High LDL: 130-159 mg/dLHigh LDL: 160-189 mg/dLVery High LDL: greater than or equal to 190 mg/dL HDL Cholesterol 40(L) >40 mg/dL [facility] Comment:Desirable HDL: great er than 40 mg/dL Note: This HDL assay may give artificially low results in patients with liver disease. 05/03/2025 7:40 AM EDT 05/03/2025 7:40 AM EDT Generic External Data Provider LAB BLOOD ORDERAB LES Final Result [facility] [address] [place] [address] [phone] * (ABNORMAL) Albumin, Random Urine W/Creatinine (05/03/2025 7:39 AM EDT) Creatinine, Urine 80.96 mg/dL [facility] Microalbumin Urine 26.0 mg/L [facility] Microalbum Creatinine Ratio Ur 32.1(H) <30 ug/mg cr [facility] Comment:Albumin/Creatinine R atio Reference Ranges: Normal: < 30 ug/mg creatinine Microalbuminuria: 30 - 300 ug/mg creatinineClinical Albuminuria: > 300 ug/mg creatinine Urine (Urine, Random) 05/03/2025 7:39 AM EDT 05/03/2025 7:46 AM EDT Andres Haddad MD LAB URINE ORDERABLES Final Resul t [facility] [address] [place] [address] [phone] * (ABNORMAL) POCT HGB A1C (05/02/2025 11:36 AM EDT) Hemoglobin A1C 6.4(A) 4.0 - 6.0 % QC Media Lot # [id number] Lot# Expiration Date Blood 05/02/2025 11:3 6 AM EDT Andres Haddad MD POINT OF CARE TEST ENTER/EDIT OR DERABLES Final Result * Hm Colonoscopy (04/20/2021 9:51 AM EDT) Colonoscopy Normal Normal Narrative Melonie Tony - 04/20/2021 9:51 AM EDT Recommended 1 year follow up Historical Provider HEALTH MAINTENANCE Final Result from Last 3 Months or Most Recently Relevant to Health Maintenance Insurance [facility] MEDICARE ADVANTAGE DENTAL - [facility] ALLIANCE DENTAL - HSN PARTIAL (MEDICAID) Care Teams Grease Renderer Relationship Specialty Start Date End Date Name, MD Andres [address] [place] [address] PCP - General Family Medicine 12/09/17
--- OUTSIDE RECORDS SUMMARY | 2025-08-15 07:55 | XMS_ITS | Encounter Summary ---
Author Organization [employer] Address [address] [place] [address] 7t [place] [address] Care Team Providers Care Laser Specialist Name Role Phone NameAndres MD Primary Care Provider [phone] Encounter Details Date Type Department Care Team (Late st Contact Info) Description 04/14/2023 Abstract [facility] MEDICINE [address] [place] [phone] NameAndres MD [address] [place] [address] [phone] Social History Tobacco Use Types Packs/Day Years [...] AM EDT documented as of this encounter Plan of Treatment Upcoming Encounters Date Type Department Care Team (Late st Contact Info) Description 09/17/2025 10:45 AM EDT Office Visit [facility] MEDICINE [address] [place] [address] [phone] Andres Haddad MD [address] [place] [address] [phone] documented as of this encounter Procedures Procedure Name Priority Date/Time Associated Diagnosis Comments HM COLONOSCOPY Routine 04/20/2021 9:51 AM EDT documented in this encounter Results * Colonoscopy (04/20/2021 9:51 AM EDT) Colonoscopy Normal Normal Narrative Melonie Tony - 04/20/2021 9:51 AM EDT Recommended 1 year follow up us Historical Provider HEALTH MAINTENANCE Final Result documented in this encounter Visit Diagnoses Not on filedocumented in this encounter Additional Health Concerns Assessment Noted Time PHQ-9 Depression Total Score: 0 12/16/19 23 9:18 AM EST documented as of this encounter Care Teams Laser Specialist Relationship Specialty Start Date End Date Name, MD Andres [address] [place] [address] PCP - General Family Medicine 12/09/17 documented as of this encounter
[2025-08-15 07:57] LABS: MANUAL DIFF FLAG NO
[2025-08-15 08:40] LABS: Hematocrit 47.0 % (42.0-52.0); Hemoglobin 15.1 g/dl (14.0-18.0); Imm Gran Abs Auto 0.03 X10*3/uL (0.00-0.03); Imm Gran Pct Auto 0.4 % (0.0-0.4); Lymphocytes Absolute Auto 2.7 X10*3/uL (1.2-4.9); Mean Corpuscular HGB Conc 32.1 g/dl (31.0-36.0); Mean Corpuscular Hemoglobin 28.2 pg (27.0-33.0); Mean Corpuscular Volume 87.9 fL (80.0-98.0); NRBC Abs Auto 0.000 X10*3/uL (0.0-0.012); NRBC Pct Auto 0.0 /100WBC (0.0-0.2); Platelet Count 167 X10*3/uL (160-400); Red Blood Count 5.35 X10*6/uL (4.60-5.80); White Blood Count 8.5 X10*3/uL (4.8-10.8)
[2025-08-15 08:43] LABS: INTERNATIONAL NORM RATIO 1.0 (0.9-1.1); Prothrombin Time 11.8 SEC (10.9-12.4)
[2025-08-15 09:19] LABS: Anion Gap 11 (12-20); Blood Urea Nitrogen 19 mg/dL (9-16); Calcium 10.1 mg/dL (8.4-10.2); Carbon Dioxide 30 mmol/L (22-29); Chloride 106 mmol/L (96-108); Estimated Glomerular Filt Rate > 60; Potassium 4.9 mmol/L (3.3-5.1); Sodium 142 mmol/L (135-145)
== END 2025-08-15 07:48 | disposition home or self-care (01) ==
LOC: HO.LAB 07:47
PROVIDERS: PCP Internal Medicine Geriatric Medicine; Visit Provider Nurse Practitioner Family
DX: I25.10 Atherosclerotic heart disease of native coronary artery without angina pectoris (principal)
CPT/HCPCS: 36415; 80048; 85025; 85610

== ENCOUNTER → 2025-08-27 23:59 | Outpatient (BNV) | payer MEDICARE, SELFPAY | PROVIDERS: PCP Internal Medicine Geriatric Medicine; Visit Provider Internal Medicine Cardiovascular Disease | DX: I50.20 Unspecified systolic (congestive) heart failure (principal) | CPT/HCPCS: 93458 ==

== ENCOUNTER 2025-10-08 14:12 | Outpatient (AMB) | payer OTHER, SELFPAY ==
[2025-10-08 14:14] VITALS: BP 120/80; PULSE 71; BMI 24.5
--- NOTE | 2025-10-08 14:14 | A.OFFVIS_ITS ---
Vital Signs 10/08/25 14:14 Height 5 ft 8 in Weight 160 lb 14.999 oz BMI 24.5 BP 120/80 Blood Pressure Location Lt brachial Position Sitting Pulse 71 Intake Visit Reasons: 6 mth f/up Intake Note: 6 month follow-up feeling good Lead Producer Required: Yes Lead Producer Services: Lead Producer Present Lead Producer Name: amanda Maciel Allergies No Known Allergies (No Known Allergies*) Allergy (Verified 04/19/25 09:11) Medication List - Last Reconciled 10/08/25 by Abhishek Kelley MD albuterol sulfate 90 mcg/actuation 2 puffs PO Q4-6H PRN aspirin 81 mg PO DAILY dulaglutide (Trulicity) mg subcut insulin NPH and regular human 100 unit/mL (70-30) (Humulin 70/30 U-100 Insulin) mL subcut isosorbide mononitrate ER 60 mg PO DAILY metformin 1,000 mg PO BID metoprolol succinate ER 50 mg PO DAILY nitroglycerin 0.4 mg sublingual Q5M PRN rosuvastatin 40 mg PO DAILY sacubitril-valsartan 24-26 mg (Entresto) 1 tab PO BID HPI Comments Details: Danny comes for follow-up after cardiac catheterization for worsening LV ejection fraction. Last echocardiogram showed LVEF of 10-15%. Underwent cardiac catheterization which shows chronic total occlusion of the circumflex with good collaterals. His LV systolic dysfunction has been out of proportion to his coronary artery disease. He comes for follow-up after cardiac catheterization. He was advised treatment with medicines. History was obtained with help of educational interpreter in the room. She denies any new symptoms. Denies any significant symptoms of worsening shortness of breath or chest pain on current medical therapy. Denies orthopnea, PND, leg edema. Denies any prolonged palpitation irregular heartbeat, lightheadedness, syncope. He has tolerated his medications well in his taking it currently. [facility] Medical History CAD (coronary artery disease) HTN (hypertension) Diabetes Surgical History H/O eye surgery Family History Brother Cancer Diabetes Sister Diabetes Social History Household Members: Spouse Alcohol intake: current Alcohol intake frequency: a few times a month Review of Systems Const Denies chills, Denies fatigue, Denies fever(s), Denies frequent falls, Denies weakness, Denies weight gain and Denies weight loss ENT Denies dizziness Card Denies chest pain, Denies leg edema, Denies lightheadedness, Denies palpitations, Denies dyspnea, Denies dyspnea on exertion, Denies orthopnea and Denies other (loss of consciousness) Resp Denies cough, Denies dyspnea and Denies dyspnea on exertion GI Denies hematochezia and Denies change in stool character Musc Denies abnormal gait, Denies muscle weakness, Denies numbness, Denies radiating pain into limb and Denies tingling Neuro Denies abnormal gait, Denies dizziness, Denies frequent falls, Denies numbness, Denies tingling and Denies weakness Endo Denies fatigue and Denies palpitations Physical Exam Vital Signs: Last Vital Signs Pulse 71 10/08/25 14:14 BP 120/80 10/08/25 14:14 BMI result Body Mass Index 24.5 Const General: cooperative, healthy appearing, comfortable and no acute distress Orientation/consciousness: patient oriented x3 Neck Neck: Yes normal visual inspection Resp Effort & Inspection: normal respiratory effort Auscultation: clear to auscultation bilaterally, no crackles, no rales, no rhonchi and no wheezes Cardio Jugular venous distension: no JVD Rate: regular rate Rhythm: regular rhythm Heart sounds: S1 normal heart sound present, S2 normal heart sound present, no murmurs and no rubs Neuro General: patient oriented x3 Extrem General: Yes normal to inspection Psych Appearance: grossly normal Mental Status: mental status grossly normal Speech and movement: Normal speech and movement present Office Procedures EKG Details: EKG shows normal sinus rhythm with left bundle-branch block [id number], Complete Assessment & Plan Assessment & Plan (1) Ischemic cardiomyopathy: Code(s): I25.5 - Ischemic cardiomyopathy Category: Medical Plan: Ischemic cardiomyopathy with significantly reduced LV ejection fraction out of proportion to his underlying coronary artery disease. He has left bundle-branch block. Cardiomyopathy appears to be combination of both ischemic cardiomyopathy, negative remodeling as well as underlying left bundle-branch block. He has no signs or symptoms of heart failure. I think he would benefit from cardiac resynchronization therapy with a primary ICD placement for prevention of sudden cardiac as well as to improve his LV ejection fraction. This was discussed with him. This was discussed with him with help of educational interpreter. He understands agrees. Discussed risk factors including benefits. Will refer him to EPS for the same. Meanwhile will uptitrate his Entresto to 49-51 mg b.i.d.. Follow-up nurse visit in 1 week with blood work. Follow up in the clinic in 3 months after device placement. (2) CAD (coronary artery disease): Comment: Severe 2 vessel disease with 99% ostial circumflex as well as IFR positive LAD disease Code(s): I25.10 - Atherosclerotic heart disease of quechan coronary artery without angina pectoris Category: Medical Plan: CAD with chronic total occlusion of the circumflex with good collaterals and no symptoms of angina on current dual antianginal therapy along with metoprolol as well as isosorbide therapy. Encouraged to maintain activity level as tolerated. His level of coronary artery disease does not explain his severe LV systolic dysfunction. Will pursue management as above. Continue low-dose aspirin therapy. Continue aggressive diabetes management goal hemoglobin A1c less than 7%. Continue high-intensity statin therapy with goal LDL less than 60 mg/dL. Advised lipid panel in near future. Will follow up in the clinic in 3 months time, sooner PRN. Thank you for allowing me to partake in his care Orders: Referrals Cardiac Electrophysiology Referral I25.5 - Ischemic cardiomyopathy, I44.7 - Left bundle-branch block, unspecified Medications: New sacubitril-valsartan 49-51 mg (Entresto) 1 tab PO BID 60 tabs 5RF Discontinued sacubitril-valsartan 24-26 mg (Entresto) Discontinued Reason: Doctor's Order 1 tab PO BID 180 tabs 3RF Coding Level of Care Code Est Pt Level 4 (33026) Complex EM visit Add On G2211 Diagnoses Ischemic cardiomyopathy I25.5 CAD (coronary artery disease) I25.10 CPT Codes EKG - CPT: 34974-[id number], Complete ([id number])
--- OUTSIDE RECORDS SUMMARY | 2025-10-08 15:53 | XMS_ITS | Encounter Summary ---
Author Organization [employer] Address [address] [place] [address] [address] [place] [address] Care Team Providers Care Drawing Checker Name Role Phone Name, Andres CRISTOBAL Primary Care Provider [phone] Encounter Details Date Type Department Care Team (Late st Contact Info) Description 04/14/2023 Abstract [facility] [address] [place] [phone] NameAndres MD [address] [place] [address] [phone] Social History Tobacco Use Types Packs/Day Years [...] Care Team (Late st Contact Info) Description 12/19/2025 11:15 AM EST Office Visit [facility] [address] [place] [address] [phone] Andres Haddad MD [address] [place] [address] [phone] documented as of this encounter Procedures Procedure [...] documented as of this encounter Care Teams Drawing Checker Relationship Specialty Start Date End Date Name, MD Andres [address] [place] [address] PCP - General Family Medicine 12/09/17 documented as of this encounter
--- OUTSIDE RECORDS SUMMARY | 2025-10-08 15:53 | XMS_ITS | Clinical Summary ---
Author Organization [employer] Address [address] [place] [address] 7t [place] [address] Care Team Providers Care Optics Test Technician Name Role Phone Name, Andres CRISTOBAL Primary Care Provider [phone] Allergies Active Allergy Reactions Criticality Noted Date Comments Atorvastatin Dizziness 07/04/2021 Medications albuterol 108 (90 Base) MCG/ACT inhaler Inhale 2 puffs every 4 (four) hours. 06/09/20 20 Active isosorbide mononitrate ER (Imdur) 60 MG 24 hr tablet Take 60 mg by mouth in the morning. 11/30/19 23 Active metoprolol succinate XL (Toprol-XL) 50 MG 24 hr tablet TAKE 1 TABLET BY MOUTH EVERY DAY, CALL MD FOR APPOINTMENT 11/30/19 23 Active rosuvastatin (Crestor) 40 MG tablet TAKE 1 TABLET BY MOUTH EVERY DAY, CALL MD FOR APPOINTMENT 11/30/19 23 Active Entresto 24-26 MG tablet 12/14/19 23 Active Lancets miscIndications :Type 2 diabetes mellitus with other specified complication, with long-term current use of insulin (HCC) Use to test blood sugar 3 times daily 100 each 11 07/10/20 24 Active Trulicity 0.75 MG/0.5ML solution auto-injector INJECT ONE PEN (=0.75MG) SUBCUTANEOUSLY ONCE A WEEK DIRECTED 2 mL 11 03/25/20 25 Active Blood Glucose Monitoring Suppl (ONE TOUCH ULTRA 2) w/Device kitIndications: Type 2 diabetes mellitus with other specified complication, with long-term current use of insulin (HCC) Use to test blood sugar 3 times daily 1 kit 04/09/20 25 Active OneTouch Delica Lancets 33G miscIndications :Type 2 diabetes mellitus with other specified complication, with long-term current use of insulin ([facility]) Use to test blood sugar 3 times daily. 100 each 11 04/09/20 25 Active insulin syringe-needle U-100 ( UltiCare Insulin Syringe) 31G X 5/16 0.3 mL misc Use as instructed 100 each 12 05/02/20 25 026 Active metFORMIN (Glucophage) 1000 MG tabletIndicatio ns:Type 2 diabetes mellitus with other specified complication, with long-term current use of insulin ([facility]) TAKE 1 TABLET BY MOUTH TWICE DAILY IN THE MORNING AND IN THE EVENING WITH MEALS 180 tablet 3 06/20/20 25 Active Blood Glucose Monitoring Suppl (Accu-Chek Guide Me) w/Device kitIndications: Type 2 diabetes mellitus with other specified complication, with long-term current use of insulin ([facility]) USE TO TEST BLOOD SUGAR THREE TIMES DAILY 1 kit 06/25/20 25 Active glucose blood (Accu-Chek Guide Test) test stripIndication s:Type 2 diabetes mellitus with other specified complication, with long-term current use of insulin ([facility]) TEST BLOOD SUGAR 3 TIMES A DAY 100 each 06/25/20 25 026 Active Accu-Chek FastClix Lancets miscIndications :Type 2 diabetes mellitus with other specified complication, with long-term current use of insulin ([facility]) 1 Lancet 4 times daily. TEST BLOOD SUGAR 3 TIMES A DAY 100 each 06/25/20 25 Active Jardiance 10 MGIndications:T ype 2 diabetes mellitus with other specified complication, with long-term current use of insulin ([facility]),Chronic systolic heart failure (HCC) TAKE 1 TABLET BY MOUTH EVERY DAY IN THE MORNING 30 tablet 2 07/17/20 25 Active insulin NPH-insulin regular (HumuLIN 70/30) (70-30) 100 UNIT/ML injectionIndica tions:Type 2 diabetes mellitus with other specified complication, with long-term current use of insulin ([facility]) INJECT 25 UNITS SUBCUTANEOUSLY EVERY MORNING AND 15 UNITS EVERY EVENING 20 mL 3 08/07/20 25 Active Active Problems Problem Noted Date Diagnosed Date [...] for procedure -I spoke today with her forest pathology teacher's office ( Dr Del Real) and was [...] all meds after procedure if ok with numerical control router operator. -To avoid NSAIDS 1 week before procedure -this note will be faxed to numerical control router operator Low back pain radiating to both legs 12/16/2022 Coronary arteriosclerosis 12/16/2022 Overview (04/20/2023): cardiac catheterization from May 2022 at [facility] which shows severe 2 vessel disease including proximal mid LAD with diffuse disease as well as ostial circumflex disease with collaterals from the right system. RCA was nonobstructive Chronic systolic heart failure 12/16/2022 Overview (09/26/2025): Images from the original note were not included. Ischemic. EF of 25% last 04/2022, shown large area of fixed defects in LAD territory suggestive infarction. LV gated EF of 25% which is confirmed by echocardiogram. Cardiac Cath 07/2025: Vitreous hemorrhage of right eye (CMS/HCC) 12/16 Diabetic retinopathy associa hazel with type 2 [...] Encounters Date Type Department Care Team Description 09/17/2025 10:45 AM EDT Office Visit [facility] [place] [address] NameAndres MD Type 2 diabetes mellitus with other specified complication, with long-term current use of insulin (HCC) (Primary Dx); Chronic systolic heart failure (HCC); Encounter for immunization 09/17/2025 Travel 09/16/2025 Telephone [facility] [place] [address] Andres Haddad MD CHARTPREP 08/07/2025 Refill [facility] [address] [place] [address] NameAndres MD Type 2 diabetes mellitus with other specified complication, with long-term current use of insulin (CMS/HCC) 07/17/2025 Refill [facility] [address] [place] [address] NameAndres MD Type 2 diabetes mellitus with other specified complication, with long-term current use of insulin ([facility]/HCC); Chronic systolic heart failure ([facility]) from Last 3 Months Immunizations Immunization Administration Dates Next Due Influenza High-dose Quadriva lent Preservative Free 09/28/2023,10/14/2020 Influenza injectable quadriv alent IIV4 with preservative 09/10/2019 Influenza injectable quadriv alent preservative free 08/16/2022,10/14/2021,09/29/2017 Influenza, High Dose Seasona l, Preservative Free 09/17/2025,09/21/2024 Pneumococcal Conjugate PCV 20 08/16/2022 RSV Bivalent 12/28/2023 Tdap 08/16/2022 Social History Tobacco Use Types Packs/Day Years Used Date Smoking Tobacco: Never Passive Smoke Exposure: Never Smokeless Tobacco: Never Tobacco Cessation:Counseling Given: Not Answered Alcohol [...] Sign Reading Time Taken Comments Blood Pressure 126/62 09/17/2025 10:41 AM EDT Pulse 72 09/17/2025 10:41 AM EDT Temperature 36.5 C (97.7 F) 09/17/2025 10:41 AM EDT Respiratory Rate 18 09/17/2025 10:41 AM EDT Oxygen Saturation 98% 09/17/2025 10:41 AM EDT Inhaled Oxygen Concentration - - Weight 74.9 kg (165 lb 2 oz) 09/17/2025 10:41 AM EDT Height 172.7 cm (5' 8 ) 09/17/2025 10:41 AM EDT Body Mass Index 25.11 09/17/2025 10:41 AM EDT Plan of Treatment Upcoming Encounters Date Type Department Care Team (Late st Contact Info) Description 12/19/2025 11:15 AM EST Office Visit [facility] [address] [place] [address] Name, MD Andres [address] [place] [address] Health Maintenance Due Date Last Done Comments [...] 2025 04/12/2022, 10/14/2021, 03/17/2021, Additional history exists Dental X-Ray: Bitewings 08/08/2025 08/07/2024 Diabetes: Hemoglobin A1C 11/01/2025 025, 04/10/2024, 12/28/2023, Additional history exists Depression Screening 05/02/2026 05/02/2025, 05/02/20 25 SDOH Screening 05/02/2026 05/02/2025 Diabetes: Urine Protein Screening 05/03/2026 05/03/2025, 04/10/2024, 02/09/2023, Additional history exists Lipid Panel 05/03/2026 05/03/2025, 12/30, 04/08/2023, Additional history exists Eye Exam 06/07/2026 06/07/2025, 05/28, 06/07/2025, Additional history exists Alcohol/Substance Use Screening 09/17/2026 09/17/2025 Tobacco Screening 09/17/2026 09/17/2025 Dental X-Ray: Full Mouth 08/08/2027 08/07/2024 DTaP/Tdap/Td Vaccines (2 - Td or Tdap) 08/16/2032 08/16/2022 Pneumococcal Vaccine: 50+ Years Completed 08/16/2022 RSV Patients and Patients Aged 60 years or older Completed 12/28/2023 Influenza Vaccine Completed 09/17/2025, , 09/28/2023, Additional history exists HIB Vaccines Aged Out [...] Procedure Name Priority Date/Time Associated Diagnosis Comments POCT GLUCOSE Routine 09/17/2025 10:42 AM EDT Type 2 diabetes mellitus with other specified complication, with long-term current use of insulin (HCC) BASIC METABOLIC PANEL Routine 08/15/2025 7:56 AM EDT PROTHROMBIN TIME-INR Routine 08/15/2025 7:56 AM EDT CBC WITH AUTO DIFFERENTIAL Routine 08/15/2025 7:56 AM EDT LIPID PANEL, STANDARD Routine 05/03/2025 7:40 AM EDT ALBUMIN, RANDOM URINE W/CREATININE Routine 05/03/2025 7:39 AM EDT Type 2 diabetes mellitus with other specified complication, with long-term current use of insulin ([facility]) POCT GLYCATED HEMOGLOBIN, TOTAL Routine 05/02/2025 11:36 AM EDT Type 2 diabetes mellitus with other specified complication, with long-term current use of insulin ([facility]) INTRAORAL - COMPLETE SERIES OF RADIOGRAPHIC IMAGES Routine 08/07/2024 3:30 PM EDT PERIODIC ORAL EVALUATION - ESTABLISHED PATIENT Routine 08/07/2024 3:30 PM EDT HM COLONOSCOPY Routine 04/20/2021 9:51 AM EDT from Last 3 Months or Most Recently Relevant to Health Maintenance Results * POCT Glucose (09/17/2025 10:42 AM EDT) Glucose Blood, POC 192 60 - 200 mg/dL QC Media Lot # [id number] Lot# Expiration Date [id number] Blood Capillary blood specimen / Unknown 09/17/2025 10:42 AM EDT us Andres Name POINT OF CARE TEST ENTER/EDIT OR DERABLES Final Result * CBC auto differential (08/15/2025 7:56 AM EDT) Pathologist [facility] White Blood Count 8.5 4.8 - 10.8 X10*3/uL [facility] Red Blood Count 5.35 4.60 - 5.80 X10*6/uL [facility] Hemoglobin 15.1 14.0 - 18.0 g/dl [facility] Hematocrit 47.0 42.0 - 52.0 % [facility] Mean Corpuscular Volume 87.9 80.0 - 98.0 fL [facility] Mean Corpuscular Hemoglobin 28.2 27.0 - 33.0 pg [facility] Mean Corpuscular HGB Conc 32.1 31.0 - 36.0 g/dl [facility] Red Cell Distribution Width 13.4 11.0 - 16.0 % [facility] Platelet Count 167 160 - 400 X10*3/uL [facility] Mean Platelet Volume 11.2 9.4 - 12.4 fL [facility] Neutrophils Percent Auto 55.5 45 - 73 % [facility] Imm Gran Pct Auto 0.4 0.0 - 0.4 % [facility] Lymphocytes Percent Auto 31.4 20 - 40 % [facility] Monocytes Percent Auto 10.5 2 - 11 % [facility] Eosinophils Percent Auto 1.6 0 - 4 % [facility] Basophils Percent Auto 0.6 0 - 2 % [facility] NRBC Pct Auto 0.0 0.0 - 0.2 /100WBC [facility] Neutrophils Absolute Auto 4.7 2.0 - 8.3 x10*3/uL [facility] Imm Gran Abs Auto 0.03 0.00 - 0.03 X10*3/uL [facility] Lymphocytes Absolute Auto 2.7 1.2 - 4.9 X10*3/uL [facility] Monocytes Absolute Auto 0.9 0.1 - 1.2 X10*3/uL [facility] Eosinophils Absolute Auto 0.1 0.0 - 0.4 X10*3/uL [facility] Basophils Absolute Auto 0.1 0.0 - 0.2 X10*3/uL [facility] NRBC Abs Auto 0.000 0.0 - 0.012 X10*3/uL [facility] 08/15/2025 7:56 AM EDT 08/15/2025 7:56 AM EDT us Generic External Data Provider LAB BLOOD ORDERAB LES Final Result [facility] [address] [place] [phone] * Prothrombin Time-INR (08/15/2025 7:56 AM EDT) Prothrombin Time 11.8 10.9 - 12.4 SEC [facility] INTERNATIONAL NORM RATIO 1.0 0.9 - 1.1 [facility] Comment:INTERNATIONAL NORMAL IZED RATIO (INR) REFERENCE RANGES Reference RangeFor patients not on anticoagulant therapy: 0.9 - 1.1INR ranges for oral anticoagulanttherapy:For prevention and treatment of venous thrombosis and pulmonary embolism: 2.0 - 3.0For acute myocardial infarction with aspirin therapy: 2.0 - 3.0For acute myocardial infarction without aspirin therapy: 3.0 - 4.0For patients with mechanical prosthetic heart valves: 2.5 - 3.5 08/15/2025 7:56 AM EDT 08/15/2025 7:56 AM EDT us Generic External Data Provider LAB BLOOD ORDERAB LES Final Result [facility] [address] [place] [phone] * (ABNORMAL) Basic Metabolic Panel (08/15/2025 7:56 AM EDT) Sodium 142 135 - 145 mmol/L [facility] Potassium 4.9 3.3 - 5.1 mmol/L [facility] Chloride 106 96 - 108 mmol/L [facility] Carbon Dioxide 30(H) 22 - 29 mmol/L [facility] Anion Gap 11(L) 12 - 20 [facility] Urea Nitrogen (BUN) 19(H) 9 - 16 mg/dL [facility] Creatinine, Serum 1.10 0.5 - 1.4 mg/dL [facility] Estimated Glomerular Filt Rate >60 [facility] Comment:Chronic Kidney Disea se: Estimated GFR < 60 mL/min/1.35h0Yhmlsk Kidney Disease: Estimated GFR < 15 mL/min/1.73m2 Glucose 103 60 - 115 mg/dL [facility] Calcium 10.1 8.4 - 10.2 mg/dL [facility] 08/15/2025 7:56 AM EDT 08/15/2025 7:56 AM EDT Generic External Data Provider LAB BLOOD ORDERAB LES Final Result Performing Organization Address [facility]/ZIP Co de Phone Number [facility] [address] [place] [phone] * (ABNORMAL) Lipid Panel, Standard (05/03/2025 7:40 AM EDT) Triglycerides 113 <150 mg/dL [facility] Comment:Desirable Triglyceri de: less than 150 mg/dLBorderline High Triglyceride 150-199 mg/dLHigh Triglyceride: 200-499 mg/dLVery High Triglyceride: greater than or equal to 5OO mg/dL Cholesterol 111 <200 mg/dL [facility] Comment:Desirable Cholestero l: less than 200 mg/dLBorderline High Cholesterol: 200-239 mg/dLHigh Cholesterol: greater than 239 mg/dL LDL Cholesterol Calculated 49 <100 mg/dL [facility] Comment:Desirable LDL: less than 100 mg/dLNear Optimal/Above Optimal LDL: 110- 129 mg/dLBorderline High LDL: 130-159 mg/dLHigh LDL: 160-189 mg/dLVery High LDL: greater than or equal to 190 mg/dL HDL Cholesterol 40(L) >40 mg/dL [facility] Comment:Desirable HDL: great er than 40 mg/dL Note: This HDL assay may give artificially low results in patients with liver disease. 05/03/2025 7:40 AM EDT 05/03/2025 7:40 AM EDT us Generic External Data Provider LAB BLOOD ORDERAB LES Final Result Performing Organization Address [facility]/ZIP Co de Phone Number [facility] [address] [place] [address] [phone] * (ABNORMAL) Albumin, Random Urine W/Creatinine (05/03/2025 7:39 AM EDT) Creatinine, Urine 80.96 mg/dL [facility] Microalbumin Urine 26.0 mg/L [facility] Microalbum Creatinine Ratio Ur 32.1(H) <30 ug/mg cr [facility] Comment:Albumin/Creatinine R atio Reference Ranges: Normal: < 30 ug/mg creatinine Microalbuminuria: 30 - 300 ug/mg creatinineClinical Albuminuria: > 300 ug/mg creatinine Urine (Urine, Random) 05/03/2025 7:39 AM EDT 05/03/2025 7:46 AM EDT Andres Haddad MD LAB URINE ORDERABLES Final Resul t [facility] [address] [place] [phone] * (ABNORMAL) POCT HGB A1C (05/02/2025 11:36 AM EDT) Hemoglobin A1C 6.4(A) 4.0 - 6.0 % QC Media Lot # [id number] Lot# Expiration Date Blood 05/02/2025 11:3 6 AM EDT Andres Hadadd MD POINT OF CARE TEST ENTER/EDIT OR DERABLES Final Result * Hm Colonoscopy (04/20/2021 9:51 AM EDT) Colonoscopy Normal Normal Narrative CecilyMelonie villegas - 04/20/2021 9:51 AM EDT Recommended 1 year follow up Historical Provider HEALTH MAINTENANCE Final Result from Last 3 Months or Most Recently Relevant to Health Maintenance Insurance [facility] MEDICARE ADVANTAGE DENTAL [facility] DENTAL - HSN PARTIAL (MEDICAID) Care Teams Optics Test Technician Relationship Specialty Start Date End Date Name, MD Andres [address] [place] [address] PCP - General Family Medicine 12/09/17
--- OUTSIDE RECORDS SUMMARY | 2025-10-08 15:53 | XMS_ITS | Encounter Summary ---
Author Organization [employer] Address [address] [facility] [address] [place] [address] Care Team Providers Care Skip Operator Name Role Phone Name, Andres CRISTOBAL Primary Care Provider [phone] Reason for Visit * Reason Onset Date Comments pre-op 07/27/2023 Encounter Details Date Type Department Care Team ([facility] st Contact Info) Description 07/27/2023 Telephone [facility] [address] [place], [place] [phone] Name, MD Andres [address] [place] [address] pre-op Social History Tobacco Use Types Packs/Day [...] 08/11/2023 1:28 PM EDT T/ C to [phone] for below message, pt. Schedule for pre-op on 08/26/2029. Chantale verbally agreed and understood. Chantale will contact pt. * Telephone Encounter - Jamaal Hansen - 08/10/2023 3:23 PM EDT Tc from [facility] returning call. Please contact at [phone] * Telephone Encounter - Elke Faria RN - 07/29/2023 11:13 AM EDT TC X1 to surgery office regarding message below. Phone rang for 2 minutes with no answer and no ability to LVM. * Telephone Encounter - Annalee Grande - 07/27/2023 10:34 AM EDT Tc from [facility] requesting a Pre-Op Location: [facility] [address], [facility] Procedure: retinal detachment repair of right eye Date of Procedure: 09/20/23 Lab: n/a EKG: n/a Anesthesia: MAC and peribulbar documented in this encounter Plan of Treatment Upcoming Encounters Date Type Department Care Team (Late st Contact Info) Description 12/19/2025 11:15 AM EST Office Visit [facility] [address] [place] [address] Name, MD Andres [address] [place] [address] documented as of this encounter Visit Diagnoses Not on filedocumented in this encounter Additional Health Concerns Assessment Noted Time PHQ-9 Depression Total Score: 0 12/16/19 23 9:18 AM EST documented as of this encounter Care Teams Skip Operator Relationship Specialty Start Date End Date Name, MD Andres [address] [place] [phone] PCP - General Family Medicine 12/09/17 documented as of this encounter
== END 2025-10-08 15:06 | disposition home or self-care (01) ==
LOC: HO.HCS 14:13
PROVIDERS: PCP Internal Medicine Geriatric Medicine; Visit Provider Internal Medicine Cardiovascular Disease
DX: I25.5 Ischemic cardiomyopathy (principal); I25.10 Atherosclerotic heart disease of native coronary artery without angina pectoris
CPT/HCPCS: 93010; 99214

== ENCOUNTER → 2025-10-08 14:12 | Outpatient (BNVA) | payer MEDICARE, SELFPAY | PROVIDERS: PCP Internal Medicine Geriatric Medicine; Visit Provider Internal Medicine Cardiovascular Disease | DX: I25.5 Ischemic cardiomyopathy (principal) | CPT/HCPCS: 93005 ==

== ENCOUNTER 2025-10-15 08:07 | Outpatient (REF) | payer MEDICARE, SELFPAY ==
[2025-10-15 09:32] LABS: Anion Gap 13 (12-20); Blood Urea Nitrogen 19 mg/dL (9-16); Calcium 10.0 mg/dL (8.4-10.2); Carbon Dioxide 26 mmol/L (22-29); Chloride 109 mmol/L (96-108); Cholesterol 100 mg/dL (<200); Estimated Glomerular Filt Rate > 60; HDL Cholesterol 34 mg/dL (>40); Potassium 5.4 mmol/L (3.3-5.1); Sodium 143 mmol/L (135-145); Triglycerides 131 mg/dL (<150)
== END 2025-10-15 08:08 | disposition home or self-care (01) ==
LOC: HO.LAB 08:07
PROVIDERS: PCP Internal Medicine Geriatric Medicine; Visit Provider Internal Medicine Cardiovascular Disease
DX: I25.5 Ischemic cardiomyopathy (principal); I25.10 Atherosclerotic heart disease of native coronary artery without angina pectoris
CPT/HCPCS: 36415; 80048; 80061